=== PATIENT | female | born 1940 | race Caucasian/White ===

== ENCOUNTER 2018-12-09 10:30 | Inpatient (IN) ==
--- NOTE | 2018-12-09 11:04 | Emergency Department Note ---
Disposition Clinical Impression: Lower extremity edema, Pulmonary hypertension, Elevated troponin Dyspnea Qualifiers: Dyspnea type: dyspnea on exertion Qualified Code(s): R06.09 - Other forms of dyspnea Pulmonary embolism Qualifiers: Pulmonary embolism type: unspecified Chronicity: unspecified Acute cor pulmonale presence: without acute cor pulmonale Qualified Code(s): I26.99 - Other pulmonary embolism without acute cor pulmonale Pulmonary edema Qualifiers: Chronicity: acute Qualified Code(s): J81.0 - Acute pulmonary edema Disposition: Admitted As Inpatient Condition: Serious Time of Disposition: 15:01 SOB HPI - General Chief Complaint: ED Shortness of Breath/Dyspnea Stated Complaint: Difficulty Breathing Time Seen by Provider: 12/09/18 10:39 Source: patient, family Limitations: no limitations Nursing Notes Reviewed: Yes Vital Signs Reviewed: Yes - History of Present Illness 78-year-old female presents from home with bedside for evaluation of shortness of breath. Onset 3 days ago and gradually progressive. Associated wi th new orthopnea. Patient also has a sensation of radiation to her upper back that was improved with Tylenol. She also had 2 episodes with momentary tightness of her throat. Also associated with worsening bilateral lower extremity edema. Patient has a nonproductive cough. No fever, chest pain, diaphoresis. Patient has diagnosis of lower extremity lymphedema followed by Dr. Sheridan with CT of her pelvis and legs pending this coming week. Patient has a history of breast cancer. She finished radiation therapy to the right breast first week of July this year. Remotely had radiation therapy to left breast. She has a history of provoked DVT of the lower extremity after fraction her ankle. She has a [place] filter in place. PMH: Hypertension, breast cancer No history of PE or ACS. No history of COPD. Has never smoked. ROS: Positive: Dyspnea, throat tightness, back pain, orthopnea, worsening lower extremity edema Negative: Fever, chills, nausea, vomiting, palpitations, diaphoresis, trauma, chest pain - Related Data Home Medications Medication Instructions Recorded Confirmed Aspirin 81 mg PO DAILY 12/23/15 12/09/18 Ca/D3/Mag#11/Zinc/Air Chief Marshal/Bonifacio/Bor 1 each PO BID 12/23/15 12/09/18 [Caltrate 600+D Plus Tablet] Calcitonin,Issue,Synthetic 1 spr NS DAILY 12/23/15 12/09/18 [Calcitonin-Issue] Cranberry Conc/Ascorbic Acid 1 each PO DAILY 12/23/15 12/09/18 [Cranberry Plus Vitamin C Sftgl] Potassium 99 mg PO DAILY 12/23/15 12/09/18 Lisinopril/Hydrochlorothiazide 4 each PO DAILY 12/20/17 12/09/18 [Zestoretic 10-12.5 mg Tablet] Cholecalciferol (D-3) [Vitamin D] 2,000 unit PO DAILY 12/09/18 12/09/18 Furosemide [Lasix] 40 mg PO DAILY 12/09/18 12/09/18 Metoprolol Succinate [Toprol Xl] 25 mg PO DAILY 12/09/18 12/09/18 Nitrofurantoin Macrocrystal 100 mg PO BID 12/09/18 12/09/18 [Nitrofurantoin] Allergies Allergy/AdvReac Type Severity Reaction Status Date / Time hydrocodone AdvReac Unknown Vomiting Verified 08/24/18 10:43 indomethacin AdvReac Unknown Vomiting Verified 08/24/18 10:43 morphine AdvReac Unknown Vomiting Verified 08/24/18 10:43 codeine AdvReac Vomiting Verified 08/24/18 10:43 oxycodone AdvReac Vomiting Verified 08/24/18 10:43 All systems ED: reviewed and negative except as stated. Review of Systems: As Per HPI Past Medical History - Past Medical History Medical history: Reports: cancer, CVA, DVT, diabetes, hyperlipidemia, hypertension, osteoporosis Surgical history: Reports: appendectomy, breast surgery, cholecystectomy, knee replacement, orthopedic, other, other Psychiatric history: Reports: no psych history - Social History Smoking Status: Never smoker Smokeless Tobacco Status: No Alcohol use: Reports: none Drug use: Reports: none Physical Exam Vital Signs Reviewed General: Patient is alert, oriented, and in no acute distress while at rest. She had dyspnea in transitioning from standing beside the ED cot to laying on the ED cot. Head: atraumatic, normocephalic Eye: normal appearance, PERRL, EOMI, no scleral icterus, no conjunctival injection ENT: mucous membranes moist, normal external ear exam Neck: normal inspection, trachea midline, full ROM Chest: normal inspection, symmetric chest rise Respiratory: Thoracic kyphosis. Good respiratory effort. Good air entry. Decreased left lower lobe sounds with faint rhonchi. Diffusely no crackles or wheezing. Cardiovascular: Regular rate and rhythm. No clicks, rubs, gallops, or murmors. Normal heart sounds. Dorsalis pedis pulses 1/4 and equal. 3+ pitting edema from the distal foot to the thigh. Abdomen: Bowel sounds present normoactive. Abdomen is soft, nondistended, and nontender. No guarding or rebound. No organomegaly noted. Musculoskeletal: Spontaneously moving all extremities. Skin: warm, dry, intact. Neuro: GCS 15. No focal neurologic deficits observed. Psych: Patient's affect is appropriate for situation. - General Limitations: no limitations General appearance: alert, in no apparent distress Course Course Narrative: Recent cardiac echo showed LVEF 55%. Clinical concern for possible pelvic mass. will CTA chest, abdomen, pelvis. EKG #1 EKG dated 12/09/2018 at 10:54 interpreted as sinus rhythm with rate of 85. NE 160, QRS 80, QTC 592. Normal axis. T-wave inversion in V1 and V4 present on comparison EKG. T-wave inversion in lead 1 new from comparison EKG. Flattening of T waves in limb leads is new for comparison EKG. Comparison EKG dated 05/12/2018 showing new changes as described. EKG #2 EKG dated 12/09/2018 at 11:55 interpreted as sinus rhythm with a rate of 81. NE 164, QRS 78, QTc 569. Normal axis. Nonspecific ST-T changes. No change from EKG #1 above. 13:25 Discussed the patient with [facility], Dr. Zurita Patient has filling defects in RUL and RML pulm arteries. Suspicious for chronic PE but cannot exclude small acute PE. Moderate pleural effusion. Serum chemistry shows mild elevation in troponin. Suspect demand ischemia. Aspirin given. BNP is markedly elevated correlate with physical exam of fluid overload status. Given the PE on CTA chest will begin heparin standard dose. I reviewed the CT imaging myself as well as the CT report both for chest, abdomen, and pelvis. CT report makes mention of pulmonary hypertension. Compared to her echocardiogram of 10/23/2018 this is new pulmonary hypertension. I discussed this with the admitting hospital is, Dr. Brumfield. After consulting with the on-call digital production operator, Dr. Bell, she agrees to accept the patient to this facility. I discussed this with the patient and family bedside. They agree to admission at this facility without transfer at this time. Chest X-Ray 12/09/18 10:54 IMPRESSION: Suspect pulmonary edema. Small left pleural effusion. D/ / David Mack MD / David Mack MD Interpreting Provider: David Mack MD Abdomen/Pelvis CTA 12/09/18 11:15 IMPRESSION: 1. Eccentric filling defects within right upper, middle, and lower lobe segmental subsegmental branches. Given eccentric location, these are favored to represent chronic/old PEs, however a component of acute PE is also possible. 2. Dilated main pulmonary artery compatible with pulmonary hypertension. 3. Moderate bilateral pleural effusions with adjacent atelectasis. Interlobular septal thickening and ground-glass opacities compatible with pulmonary edema in the setting of CHF. 4. No thoracoabdominal aortic aneurysm or dissection. 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 5. Anasarca with diffuse body wall edema, mesenteric edema, and free fluid in the pelvis. 6. Colonic diverticulosis without associated acute inflammatory changes. 7. Gas in the urinary bladder, presumably related to recent instrumentation. Clinical correlation is recommended. Findings were discussed with Pop Walters DO at 1:25 pm on 12/09/2018. D/ / 12/09/2018 13:31:01 Ronan Elias MD / nicole Interpreting Provider: Ronan Elias MD Chest CTA 12/09/18 11:15 IMPRESSION: 1. Eccentric filling defects within right upper, middle, and lower lobe segmental subsegmental branches. Given eccentric location, these are favored to represent chronic/old PEs, however a component of acute PE is also possible. 2. Dilated main pulmonary artery compatible with pulmonary hypertension. 3. Moderate bilateral pleural effusions with adjacent atelectasis. Interlobular septal thickening and ground-glass opacities compatible with pulmonary edema in the setting of CHF. 4. No thoracoabdominal aortic aneurysm or dissection. 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 5. Anasarca with diffuse body wall edema, mesenteric edema, and free fluid in the pelvis. 6. Colonic diverticulosis without associated acute inflammatory changes. 7. Gas in the urinary bladder, presumably related to recent instrumentation. Clinical correlation is recommended. Findings were discussed with Pop Walters DO at 1:25 pm on 12/09/2018. D/ / 12/09/2018 13:31:01 Ronan Elias MD / nicole Interpreting Provider: Ronan Elias MD Vital Signs Temperature 97.6 F 12/09/18 10:34 Pulse Rate 97 12/09/18 10:34 Respiratory Rate 20 12/09/18 10:34 Blood Pressure 175/114 12/09/18 10:34 O2 Sat by Pulse Oximetry 98 12/09/18 10:34 Temperature 97.6 F 12/09/18 10:34 Pulse Rate 96 12/09/18 14:00 Respiratory Rate 24 12/09/18 14:00 Blood Pressure 189/113 12/09/18 14:00 O2 Sat by Pulse Oximetry 97 12/09/18 14:00 Oxygen Delivery Oxygen Delivery Room Air Shortness of Breath/Dyspnea - Lab Data Result diagrams: 12/09/18 11:02 12/09/18 11:02 Lab Results 12/09/18 12/09/18 12/09/18 Range/Units 11:02 11:02 11:02 WBC 4.0 L (4.3-11.1) K/mcL RBC 3.79 L (3.82-4.97) M/mcL Hgb 11.9 (11.5-15.4) g/dL Hct 36.1 (35.3-44.9) % MCV 95.3 (83.0-100.0) fL MCH 31.4 (28.0-33.3) pg MCHC 33.0 (31.6-35.5) g/dL RDW 12.8 (11.5-14.5) % Plt Count 167 (140-400) K/mcL MPV 9.7 (9.4-12.4) fL Immature Gran % 0.5 (0-4) % Seg Neutrophils % 69.2 % Lymphocytes % 18.0 % Monocytes % 9.8 % Eosinophils % 1.0 % Basophils % 1.5 % Neutrophils # 2.8 (1.6-8.9) K/mcL Lymphocytes # 0.7 (0.6-4.6) K/mcL Monocytes # 0.4 (0.0-1.3) K/mcL Eosinophils # 0.0 (0.0-0.6) K/mcL Basophils # 0.1 (0.0-0.2) K/mcL PT (9.4-12.1) Seconds INR Heparin Anti-Xa, Unfract (0.30-0.70) IU/mL Sodium 140 (136-145) mEq/L Potassium 4.2 (3.5-5.1) mEq/L Chloride 107 (98-107) mEq/L Carbon Dioxide 24 (23-29) mEq/L BUN 39 H (8-23) mg/dL Creatinine 1.15 (0.60-1.20) mg/dL Est GFR ( Amer) 56 L (> 60) Est GFR (Non-Af Amer) 46 L (> 60) BUN/Creatinine Ratio 34 H (6-26) Glucose 103 (70-105) mg/dL Calculated Osmolality 300 (280-300) Lactic Acid 1.0 (0.5-2.2) mmol/L Calcium 9.9 (8.6-10.3) mg/dL Troponin I 0.05 H* (< 0.04) ng/mL B-Natriuretic Peptide (Less than 100) pg/mL 12/09/18 12/09/18 Range/Units 11:02 14:34 WBC (4.3-11.1) K/mcL RBC (3.82-4.97) M/mcL Hgb (11.5-15.4) g/dL Hct (35.3-44.9) % MCV (83.0-100.0) fL MCH (28.0-33.3) pg MCHC (31.6-35.5) g/dL RDW (11.5-14.5) % Plt Count (140-400) K/mcL MPV (9.4-12.4) fL Immature Gran % (0-4) % Seg Neutrophils % % Lymphocytes % % Monocytes % % Eosinophils % % Basophils % % Neutrophils # (1.6-8.9) K/mcL Lymphocytes # (0.6-4.6) K/mcL Monocytes # (0.0-1.3) K/mcL Eosinophils # (0.0-0.6) K/mcL Basophils # (0.0-0.2) K/mcL PT 11.3 (9.4-12.1) Seconds INR 1.0 Heparin Anti-Xa, Unfract 1.39 H* (0.30-0.70) IU/mL Sodium (136-145) mEq/L Potassium (3.5-5.1) mEq/L Chloride (98-107) mEq/L Carbon Dioxide (23-29) mEq/L BUN (8-23) mg/dL Creatinine (0.60-1.20) mg/dL Est GFR ( Amer) (> 60) Est GFR (Non-Af Amer) (> 60) BUN/Creatinine Ratio (6-26) Glucose (70-105) mg/dL Calculated Osmolality (280-300) Lactic Acid (0.5-2.2) mmol/L Calcium (8.6-10.3) mg/dL Troponin I (< 0.04) ng/mL B-Natriuretic Peptide 1659 H (Less than 100) pg/mL Critical Care Time Critical Care Time: Yes Total Critical Care Time: 35 Attestation: Critical care time 35 minutes managing PE with heparin. Attestation Statement - Attestation Attestation: Patient was seen with resident physician. I reviewed the history, physical, assessment and plan, and agree with the findings. I also personally evaluated this patient and had [id number] time with this patient. 78-year-old female presents to the emergency department with chief complaint of shortness of breath and lower extremity swelling. Patient states that it has been ongoing for approximately the last 1 week or so. She said today just r eally was worse and she also had some tightness in her chest. Which ultimately prompted the visit to the emergency department. She is recently been seen by vascular surgery wanted to get a CT scan the abdomen and pelvis because of her lower extremity lymphedema. She denies nausea vomiting or diarrhea. Review of systems as above remainder negative. Physical exam vital signs were stable. ENT is unremarkable. Heart regular rhythm and rate. Lungs clear to auscultation. Abdomen is soft and nontender. Extremities significant swelling of the lower extremities bilaterally. Neurologically intact. Skin no rashes. Psych normal. ED course. I we will do CT scan of the chest abdomen pelvis. She does have a filter, but the shortest of breath is concerning especially with her cancer history as well as her history of blood clots in the past. I we will do a complete cardiac and pulmonary workup and disposition based on the findings. Hemodynamically she remained stable throughout her stay. Patient had a variety of abnormalities show up on examination. She does have a slight elevation in troponin. She had a pulmonary embolism. There is some evidence of pulmonary hypertension . Patient was started on heparin. We spoke with the hospitalist. After some discussion with pulmonology they agreed to accept the patient for admission to the hospital. Critical care time 35 minutes. Agree with resident physician assessment and plan. ED procedures.I reviewed the patient's EKG as well as the resident physician interpretation and I agree with the findings.
[2018-12-09 11:12] LABS: Basophils # 0.1 K/mcL (0.0-0.2); Basophils % 1.5 %; Hematocrit 36.1 % (35.3-44.9); Hemoglobin 11.9 g/dL (11.5-15.4); Immature Granulocytes % 0.5 % (0-4); Lymphocytes # 0.7 K/mcL (0.6-4.6); Mean Corpuscular Hemoglobin 31.4 pg (28.0-33.3); Mean Corpuscular Volume 95.3 fL (83.0-100.0); Mean Platelet Volume 9.7 fL (9.4-12.4); Monocytes # 0.4 K/mcL (0.0-1.3); Monocytes % 9.8 %; Neutrophils # 2.8 K/mcL (1.6-8.9); Platelet Count 167 K/mcL (140-400); Red Blood Count 3.79 M/mcL (3.82-4.97); Red Cell Distribution Width 12.8 % (11.5-14.5); Segmented Neutrophils % 69.2 %
[2018-12-09] MEDS ORDERED: Isovue-370 500 ML BOTTLE IVP ONE ×2 (11:15→12:39)
[2018-12-09 11:34] LABS: Calcium 9.9 mg/dL (8.6-10.3); Potassium 4.2 mEq/L (3.5-5.1)
[2018-12-09] MEDS ORDERED: 0.9 % Sodium Chloride 1,000 ML IVC ONE (11:37)
[2018-12-09 11:41] LABS: Troponin I 0.05 ng/mL (< 0.04)
[2018-12-09] MEDS ORDERED: Aspirin 325 MG TABLET PO ONE (11:48)
[2018-12-09] MEDS ORDERED: Furosemide 40 MG/4 ML VIAL IVP ONE (11:48)
[2018-12-09] MEDS ORDERED: *HR* Heparin 5,000 UNIT/ML VIAL IVP ONE (13:26)
[2018-12-09] MEDS ORDERED: *HR* Heparin 5,000 UNIT/ML VIAL IVP PRN ×2 (13:26)
[2018-12-09] MEDS: Heparin 25,000 UNIT/250 ML D5W 25,000 UNIT/250 ML IV.SOLN IVC SCH (14:09)
[2018-12-09] MEDS ORDERED: Ondansetron ODT 4 MG TAB.RAPDIS SL PRN (14:44)
[2018-12-09] MEDS ORDERED: Naloxone 0.4 MG/ML INJ IVP PRN (14:44)
[2018-12-09] MEDS ORDERED: *HR* HYDROcodone/Acet 5/325 mg TABLET PO PRN (14:44)
[2018-12-09 14:57] LABS: Prothrombin Time 11.3 Seconds (9.4-12.1)
[2018-12-09 14:59] LABS: Heparin anti-factor XA UFH 1.39 IU/mL (0.30-0.70)
--- NOTE | 2018-12-09 15:38 | Internal Med History&Physical ---
Date of Encounter: 12/09/18 Time of Encounter: 15:30 Internal Medicine - H&P: HPI Chief complaint: shortness of breath. and edema or the lower extr Admitted From: Home Plans for Post Hospital Care: Home History of present illness: Ms. Xiao is a 78 year old female PMH od breast CA, HTN, b/l knee replacement. Patient presented to the hospital due to shortness of breath and worsening edema of the lower extr. Patient reported she has been feeling short of breath for about a week now. Reported she has not been able to sleep flat because she need to sit up to catch her breath, for this reason she has been sleeping on a sitting position in recliner. She also reported shortness of breath with minimal exertion, started walking across the hallway at home would make her short of breath. stated the shortness of breath worsened significantly today and decided to come to the ED to be checked. Patient also reported gaining about 30 pounds for the past 2 1/2 months, and stated her legs are significantly bigger. stated she was on furosemide 20mg/PO daily, and her PCP increased the dose to 40mg/PO daily but it has not helped. Denies increased fluid intake, or increase salt intake. denied chest pain, but reported chest pressure associated with the shortness of breath. Denies diarrhea, loose stool. denies blood in her urine or stool. Patient was found to have anasarca, and PE. Hospitalist team called for manageme nt. Past Med Surg Social Fam HX - Past Medical History Medical history: cancer, CVA, DVT, diabetes, hyperlipidemia, hypertension, os teoporosis Additional medical history: fx R leg, L breast CA, diverticulosis, BCC, actinic keratosis Psychiatric history: no psych history - Past Surgical History Surgical History: appendectomy, breast surgery, cholecystectomy, knee replacement, orthopedic, other, other Additional surgical history: tonsillectomy, L breast lumpectomy, nolan in R leg, IVC filter, colonoscopy, ORIF L leg, BCC removed from nose - Social History Smoking Status: Never smoker Smokeless Tobacco Status: No Alcohol use: none Drug use: none Internal Medicine - H&P: Meds Aspirin 81 mg PO DAILY 12/23/15 [History] Ca/D3/Mag#11/Zinc/[employer] Support [employer]/Bonifacio/Bor [Caltrate 600+D Plus Tablet] 1 each PO BID 12/23/15 [History] Calcitonin,[place],Synthetic [Calcitonin-[place]] 1 spr NS DAILY 12/23/15 [History] Cranberry Conc/Ascorbic Acid [Cranberry Plus Vitamin C Sftgl] 1 each PO DAILY 12/23/15 [History] Potassium 99 mg PO DAILY 12/23/15 [History] Lisinopril/Hydrochlorothiazide [Zestoretic 10-12.5 mg Tablet] 4 each PO DAILY 12/20/17 [History] Cholecalciferol (D-3) [Vitamin D] 2,000 unit PO DAILY 12/09/18 [History] Furosemide [Lasix] 40 mg PO DAILY 12/09/18 [History] Metoprolol Succinate [Toprol Xl] 25 mg PO DAILY 12/09/18 [History] Nitrofurantoin Macrocrystal [Nitrofurantoin] 100 mg PO BID 12/09/18 [History] Allergy/AdvReac Type Severity Reaction Status Date / Time hydrocodone AdvReac Unknown Vomiting Verified 08/24/18 10:43 indomethacin AdvReac Unknown Vomiting Verified 08/24/18 10:43 morphine AdvReac Unknown Vomiting Verified 08/24/18 10:43 codeine AdvReac Vomiting Verified 08/24/18 10:43 oxycodone AdvReac Vomiting Verified 08/24/18 10:43 All Systems PM: A 10-system review of systems was performed and is negative for pertinent findings except as documented above in the HPI. - Constitutional Constitutional: weakness, no chills, no fever(s) - EENT Nose, mouth and throat: no dental pain - Cardiovascular Cardiovascular ROS IM: dyspnea, dyspnea on exertion, edema, orthopnea, paroxysmal nocturnal dyspnea, no chest pain, no irregular heart rhythm, no palpitations - Respiratory Respiratory: no cough, no wheezing, no excessive phlegm production - Gastrointestinal Gastrointestinal: no abdominal pain, no nausea, no vomiting - Genitourinary Genitourinary: no dysuria, no urinary frequency, no urinary hesitancy - Musculoskeletal Musculoskeletal ROS IM: no arthralgias - Neurological Neurological ROS: no focal weakness - Psychiatric Psychiatric: no anxiety, no hallucinations - Endocrine Endocrine IM: no cold intolerance, no excessive sweating - Hematologic/Lymphatic Hematologic/Lymphatic: no lymphadenopathy - Allergic/Immunologic Allergic/Immunologic: no GI upset with certain foods - Constitutional Vitals: Temp Pulse Resp BP Pulse Ox 97.6 F 96 24 189/113 97 12/09/18 10:34 12/09/18 14:00 12/09/18 14:00 12/09/18 14:00 12/09/18 14:00 Exam: Vitals: Reviewed General: Alert and oriented x4. In mild distress due to shortness of breath Cardiovascular: RRR, normal S1 & S2, no rubs, murmurs or gallops. Lungs: No wheezes, crackles left lower lobe. Abdomen: Obese, soft, non-tender, no rigidity. Extremities: Anasarca Neurological: Normal cognition and motor skills. Rest of the physical exam is non contributory Internal Med - H&P Results - Labs CBC & Chem 7: 12/09/18 11:02 12/09/18 11:02 Labs: Short CBC 12/09/18 Range/Units 11:02 WBC 4.0 L (4.3-11.1) K/mcL Hgb 11.9 (11.5-15.4) g/dL Hct 36.1 (35.3-44.9) % Plt Count 167 (140-400) K/mcL Neutrophils # 2.8 (1.6-8.9) K/mcL BMP 12/09/18 11:02 Sodium 140 Potassium 4.2 Chloride 107 Carbon Dioxide 24 BUN 39 H Creatinine 1.15 Glucose 103 Calcium 9.9 Cardiac Enzymes 12/09/18 Range/Units 11:02 Troponin I 0.05 H* (< 0.04) ng/mL - Impressions ITS Impressions Chest X-Ray 12/09/18 10:54 IMPRESSION: Suspect pulmonary edema. Small left pleural effusion. D/ / David Mack MD / David Mack MD Interpreting Provider: David Mack MD Abdomen/Pelvis CTA 12/09/18 11:15 IMPRESSION: 1. Eccentric filling defects within right upper, middle, and lower lobe segmental subsegmental branches. Given eccentric location, these are favored to represent chronic/old PEs, however a component of acute PE is also possible. 2. Dilated main pulmonary artery compatible with pulmonary hypertension. 3. Moderate bilateral pleural effusions with adjacent atelectasis. Interlobular septal thickening and ground-glass opacities compatible with pulmonary edema in the setting of CHF. 4. No thoracoabdominal aortic aneurysm or dissection. 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 5. Anasarca with diffuse body wall edema, mesenteric edema, and free fluid in the pelvis. 6. Colonic diverticulosis without associated acute inflammatory changes. 7. Gas in the urinary bladder, presumably related to recent instrumentation. Clinical correlation is recommended. Findings were discussed with Pop Walters DO at 1:25 pm on 12/09/2018. D/ / 12/09/2018 13:31:01 Ronan Elias MD / nicole Interpreting Provider: Ronan Elias MD Chest CTA 12/09/18 11:15 IMPRESSION: 1. Eccentric filling defects within right upper, middle, and lower lobe segmental subsegmental branches. Given eccentric location, these are favored to represent chronic/old PEs, however a component of acute PE is also possible. 2. Dilated main pulmonary artery compatible with pulmonary hypertension. 3. Moderate bilateral pleural effusions with adjacent atelectasis. Interlobular septal thickening and ground-glass opacities compatible with pulmonary edema in the setting of CHF. 4. No thoracoabdominal aortic aneurysm or dissection. 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 5. Anasarca with diffuse body wall edema, mesenteric edema, and free fluid in the pelvis. 6. Colonic diverticulosis without associated acute inflammatory changes. 7. Gas in the urinary bladder, presumably related to recent instrumentation. Clinical correlation is recommended. Findings were discussed with Pop Walters DO at 1:25 pm on 12/09/2018. D/ / 12/09/2018 13:31:01 Ronan Elias MD / nicole Interpreting Provider: Ronan Elias MD - Diagnostic Studies Chest x-ray Status: image reviewed by me (pulmonary edema. small b/l pleural effusion L>R) - Assessment and Plan (1) Pulmonary embolism Current Visit: Yes Status: Acute Assessment and plan: CT/CT angio chest IMPRESSION: 1. Eccentric filling defects within right upper, middle, and lower lobe segmental subsegmental branches. Given eccentric location, these are favored to represent chronic/old PEs, however a component of acute PE is also possible. Plan: Patient started on a heparin drip. patient will need to be on a anticoagulant life long patient has a venous dupplex less than one month ago which was negative for DVT/SVT. Qualifiers: Pulmonary embolism type: unspecified Chronicity: unspecified Acute cor pulmonale presence: without acute cor pulmonale Qualified Code(s): I26.99 - Other pulmonary embolism without acute cor pulmonale (2) Shortness of breath Current Visit: Yes Status: Acute Assessment and plan: patient with SOB, orthopnea, weight gain and worsening edema of the lower extr b/l. patient symptoms are likely secondary to CHF and acute/chronic pulmonary embolism. Plan: started on furosemide 40mg/IV BID strict intake and output daily weight fluids restriction to 1.5 litters a day 2gram sodium diet TTE ordered to evaluate for right heart strain and estimate EF. will resume home dose of metoprolol. (3) Anasarca Current Visit: Yes Status: Chronic Assessment and plan: plan of care as per problem #1. (4) DVT prophylaxis Current Visit: Yes Status: Chronic Assessment and plan: patient on a heparin drip due to acute PE (5) Pulmonary edema Current Visit: Yes Status: Acute Assessment and plan: plan of care as per problem #1. Qualifiers: Chronicity: acute Qualified Code(s): J81.0 - Acute pulmonary edema (6) Pulmonary hypertension Current Visit: Yes Status: Acute Assessment and plan: possible classification within the Group 4. Pulmonology has been consulted. 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 (8) Hypertension Current Visit: Yes Status: Chronic Assessment and plan: Hypertensive urgency on presentation. BP 197/119. patient started on furosemide 40mg/IV BID and metoprolol. hydralazine 5mg/IV Q5HR for SBP >190 or DBP >110 Qualifiers: Hypertension type: unspecified Qualified Code(s): I10 - Essential (primary) hypertension (9) Superior mesenteric artery stenosis Current Visit: Yes Status: Chronic - Time Spent With Patient Total time spent is greater than 50% in coordination of care (as documented) at patient's floor/unit and/or counseling patient: Greater than 35 minutes (50)
[2018-12-09 16:01] LABS: ABG Base Excess 0 mEq/L (-2 to 3); ABG HCO3 24 mEq/L (21-27); ABG Oxygen Saturation 97 % (95-98); ABG PCO2 34 mmHg (35-45); ABG PH 7.45 pH Units (7.32-7.45); ABG PO2 85 mmHg (85-104); ABG TCO2 25 mEq/L (20-26)
--- NOTE | 2018-12-09 16:33 | Electrocardiograph Report ---
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
--- NOTE | 2018-12-09 16:34 | Electrocardiograph Report ---
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
[2018-12-09 18:17] LABS: Bilirubin,Urine Negative (Negative); Blood,Urine Moderate (Negative); Clarity,Urine Clear (Clear); Glucose,Urine (UA) Normal (Normal); Ketones,Urine Negative (Negative); Leukocyte Esterase,Urine Negative (Negative); Nitrite,Urine Negative (Negative); PH,Urine 6.5 pH Units (5.0-8.0); Protein,Urine 100 mg/dL (Neg-Trace); Urobilinogen,Urine Normal (Normal)
[2018-12-09 18:28] LABS: Color,Urine Yellow (Yellow)
[2018-12-09 18:29] LABS: Bacteria,Urine Few per hpf (None-Few); Squamous Epithelial Cell,Urine Few per lpf (None-Few); WBC,Urine 0-3 per hpf (0-3)
[2018-12-09] MEDS: Acetaminophen 325 MG TABLET PO PRN (20:11)
[2018-12-09] MEDS: Furosemide 40 MG/4 ML VIAL IVP SCH (20:12)
[2018-12-10 02:48] LABS: Basophils # 0.1 K/mcL (0.0-0.2); Basophils % 1.8 %; Eosinophils # 0.1 K/mcL (0.0-0.6); Eosinophils % 2.1 %; Hematocrit 30.3 % (35.3-44.9); Immature Granulocytes % 0.3 % (0-4); Lymphocytes # 0.8 K/mcL (0.6-4.6); Lymphocytes % 21.1 %; Mean Corpuscular Hemoglobin 31.5 pg (28.0-33.3); Mean Corpuscular Volume 95.6 fL (83.0-100.0); Mean Platelet Volume 9.8 fL (9.4-12.4); Monocytes # 0.5 K/mcL (0.0-1.3); Monocytes % 12.6 %; Neutrophils # 2.4 K/mcL (1.6-8.9); Platelet Count 163 K/mcL (140-400); Red Blood Count 3.17 M/mcL (3.82-4.97); Red Cell Distribution Width 12.6 % (11.5-14.5); Segmented Neutrophils % 62.1 %; White Blood Count 3.8 K/mcL (4.3-11.1)
[2018-12-10 03:08] LABS: Albumin 2.9 g/dL (3.5-5.7); Albumin/Globulin Ratio 1.6 (1.1-2.2); Bilirubin,Total 0.5 mg/dL (0.3-1.0); Chol/HDL Ratio 3.1 (0-4.9); Globulin 1.8 g/dL (2.4-3.5); Magnesium 1.9 mg/dL (1.6-2.6); Phosphorous 4.1 mg/dL (2.7-4.5); Potassium 3.9 mEq/L (3.5-5.1); Total Protein 4.7 g/dL (6.4-8.9)
[2018-12-10] MEDS: Aspirin Enteric Coated 81 MG Tablet PO SCH (08:19)
[2018-12-10] MEDS: Metoprolol XL (24 HR) Succ 25 MG TAB.ER.24H PO SCH (08:19)
[2018-12-10] MEDS: Furosemide 40 MG/4 ML VIAL IVP SCH ×2 (08:19→19:55)
--- NOTE | 2018-12-10 08:28 | Pulmonology Consult Note ---
<PatriciaKamryn moore M - Last Filed: 12/10/18 09:10> Date of Encounter: 12/10/18 Medications and Allergies Aspirin 81 mg PO DAILY 12/23/15 [History] Ca/D3/Mag#11/Zinc/In Flight Refueling Operator/[place]/Bor [Caltrate 600+D Plus Tablet] 1 each PO BID 12/23/15 [History] Calcitonin,[place],Synthetic [Calcitonin-[place]] 1 spr NS DAILY 12/23/15 [History] Cranberry Conc/Ascorbic Acid [Cranberry Plus Vitamin C Sftgl] 1 each PO DAILY 12/23/15 [History] Potassium 99 mg PO DAILY 12/23/15 [History] Lisinopril/Hydrochlorothiazide [Zestoretic 10-12.5 mg Tablet] 4 each PO DAILY 12/20/17 [History] Cholecalciferol (D-3) [Vitamin D] 2,000 unit PO DAILY 12/09/18 [History] Furosemide [Lasix] 40 mg PO DAILY 12/09/18 [History] Metoprolol Succinate [Toprol Xl] 25 mg PO DAILY 12/09/18 [History] Nitrofurantoin Macrocrystal [Nitrofurantoin] 100 mg PO BID 12/09/18 [History] Allergy/AdvReac Type Severity Reaction Status Date / Time hydrocodone AdvReac Unknown Vomiting Verified 08/24/18 10:43 indomethacin AdvReac Unknown Vomiting Verified 08/24/18 10:43 morphine AdvReac Unknown Vomiting Verified 08/24/18 10:43 codeine AdvReac Vomiting Verified 08/24/18 10:43 oxycodone AdvReac Vomiting Verified 08/24/18 10:43 All Systems: The remainder of the systems were reviewed and are negative Physical Examination Vital Signs: Vital Signs, Last 4 Hours Temp Pulse Resp BP Pulse Ox 12/10/18 08:24 98.4 F 12/10/18 08:00 85 25 161/93 98 12/10/18 07:00 85 19 154/91 97 12/10/18 06:00 86 21 157/92 95 Results - Laboratory Findings CBC and BMP: 12/10/18 02:38 12/10/18 02:38 ABG ABG pH 7.45 pH Units (7.32-7.45) 12/09/18 15:57 ABG pCO2 34 mmHg (35-45) L 12/09/18 15:57 ABG pO2 85 mmHg (85-104) 12/09/18 15:57 ABG O2 Saturation 97 % (95-98) 12/09/18 15:57 PT/INR, D-dimer PT 11.3 Seconds (9.4-12.1) 12/09/18 14:34 Abnormal lab findings: Abnormal lab results WBC 3.8 K/mcL (4.3-11.1) L 12/10/18 02:38 RBC 3.17 M/mcL (3.82-4.97) L 12/10/18 02:38 Hgb 10.0 g/dL (11.5-15.4) L D 12/10/18 02:38 Hct 30.3 % (35.3-44.9) L 12/10/18 02:38 Heparin Anti-Xa, Unfract 0.24 IU/mL (0.30-0.70) L 12/10/18 02:38 ABG pCO2 34 mmHg (35-45) L 12/09/18 15:57 BUN 39 mg/dL (8-23) H 12/10/18 02:38 Est GFR ( Amer) 55 (> 60) L 12/10/18 02:38 Est GFR (Non-Af Amer) 45 (> 60) L 12/10/18 02:38 BUN/Creatinine Ratio 34 (6-26) H 12/10/18 02:38 Troponin I 0.08 ng/mL (< 0.04) H* 12/10/18 02:38 B-Natriuretic Peptide 1659 pg/mL (Less than 100) H 12/09/18 11:02 Serum Total Protein 4.7 g/dL (6.4-8.9) L 12/10/18 02:38 Albumin 2.9 g/dL (3.5-5.7) L 12/10/18 02:38 Globulin 1.8 g/dL (2.4-3.5) L 12/10/18 02:38 Urine Protein 100 mg/dL (Neg-Trace) H 12/09/18 18:02 Urine Blood Moderate (Negative) H 12/09/18 18:02 Urine Microscopic RBC 5-15 per hpf (0-3) H 12/09/18 18:02 - Clinical Findings Intake & Output: Intake & Output 12/09/18 12/10/18 12/10/18 23:59 07:59 15:59 Intake Total 278.8 / 1285.8 43.1 / 43.1 Output Total 1645 / 2345 350 / 500 150 / 500 Balance -1366.2 / -1059.2 -306.9 / -456.9 -150 / -456.9 Weight 76.3 kg Consult Discharge Plan - Plan Referrals: Nae Barone, INDUSTRIAL SALES ENGINEER [Primary Care Provider] - - Attending Attestation I examined this patient and my medical decision-making was reviewed with the Resident Physician. I agree with the documented findings, disposition and treatment plan as described except to the extent set forth below. Patient seen and examined. Labs, radiology, chart personally reviewed. Agree with resident's history and physical, assessment, plan with following comments: HAM FACER: Patient follows commands, Pulmonary: Acceptable oxygenation and ventilation. Reviewed CT chest and I suspect this is mostly chronic thromboembolic disease and most likely she has pulmonary hypertension from that and clearly pulmonary artery enlarged and the CT. Patient has multiple risk factors for thromboembolic disease including malignancies and also she has bilateral leg swelling. Patient has IVC filter placed in the past. Echocardiogram was done and final report is pending at this time. There is no indication for thrombolytics at this time. I have explained to the patient ideally if her malignancies get under control then she might need surgery to remove clots that is done only in some highly specialized centers in the [facility]. At this time she would need to be on anticoagulation and they suspect this need to be done for the rest overnight. Cardiovascular: stable , actually she is hypertensive and just received a phone call from the box spring maker suspecting pericardial tamponade and immediately talk to Dr. Ling regarding the findings and he would evaluate the patient. Will keep patient in ICU for now. Patient is on beta marcia and if she remained hypertensive will resume her medications. GI: Nutrition per dietary and GI prophylaxis per routine. Keep patient nothing by mouth for any possible surgeries. Heme: DVT prophylaxis per routine. This will be transition to oral when she is ready. Patient is already seen by oncologist and also surgeon for her breast cancer ID: Continue antibiotics and plan to de-escalation Renal; urine out put and renal function reviewed Endorcine: blood glucose is monitored Lines: all lines checked and no evidence of infections Skin: skin care to prevent pressure ulcers per nursing routine care Dispo: To keep her in ICU for now Code: Full. Prognosis. Critical if pericardial tamponade get worse. I spent 40 min of Critical Care time with this patient. It involved decision m aking of high complexity to assess, manipulate, and support vital organ system failure and/or to prevent further life threatening deterioration of the patient's condition. The time involved in the performance of separately reportable procedures was not counted toward critical care time. <Rufus Soriano Pily - Last Filed: 12/10/18 15:49> Date of Encounter: 12/10/18 Time of Encounter: 08:02 Assessment and Plan (1) Pericardial effusion Current Visit: Yes Status: Acute (2) Pulmonary embolism Current Visit: Yes Status: Acute Qualifiers: Pulmonary embolism type: unspecified Chronicity: unspecified Acute cor pulmonale presence: without acute cor pulmonale Qualified Code(s): I26.99 - Other pulmonary embolism without acute cor pulmonale (3) Pleural effusion Current Visit: Yes Status: Acute (4) Urinary tract infection Current Visit: Yes Status: Acute Qualifiers: Qualified Code(s): N39.0 - Urinary tract infection, site not specified; R31.9 - Hematuria, unspecified (5) Breast cancer in female Current Visit: Yes Status: Acute Qualifiers: Qualified Code(s): C50.919 - Malignant neoplasm of unspecified site of unspecified female breast History of Present Illness Consult date: 12/10/18 History of present illness: EMR review Mrs. Xiao is a 78-year-old female who presented to the ED from home on 12/09/18 with shortness of breath. PMH: Bilateral Breast cancer, hypertension, CVA, diabetes, hyperlipidemia, osteoporosis Initial pertinent positive VS: Pulse 97, RR 24, BP 189/113 Initial pertinent positive labs: PCO2 34. BUN 39 from 25 on 06/05/89. Troponins 0.05> 0.04> 0.08x2. BNP 1659. Proteinuria, hematuria. CXR was suspect for pulmonary edema. Small left pleural effusion seen EKG 10:54: Read by box spring maker as Prolonged QT interval. Nonspecific T abnormalities in diffuse leads EKG 11:51 read as T wave abnormalities more specific to the anterolateral leads CTA chest interpretation included suggestive for old pulmonary embolisms. Could not exclude small acute PE. Also Dilated main pulmonary artery compatible with pulmonary hypertension. Moderate bilateral effusions with adjacent atelectasis. Pulmonary edema. 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 Anasarca. CTA abdomen/pelvis read as colonic diverticulosis. As in the urinary bladder. Admitted for: #Pulmonary embolism. Treated with heparin drip. #Dyspnea potentially secondary to CHF. Treated with furosemide. Was found to have evidence of cardiac tamponade and was kept in the ICU Interview with the patient: CC: "Could not breathe" History of present illness Dyspnea worsened within the past 1-2 weeks. She was having anxiety attacks. Later stated that the dyspnea lasted all summer and recently worsened. Feeling of water on her lungs. She agrees that she was walking slower than usual. History of lower extremity DVT with placement of a filter that is still in place. PMH: CVA, breast cancer, osteoporosis, DVT. Patient denies diabetes, hyperlipidemia. PSH: Bilateral lumpectomy, cholecystectomy, appendectomy, bilateral knee replacement Medications: Calcium citrate D. Metoprolol 25. Lisinopril 25. Aspirin 81. Cranberry pills. Vitamin D3. Potassium tablets. Cetirizine. Tylenol. Family history: MotherCOPD, liver or colon cancer. Fathercardiac issues, possible cancer. Brotherpossible hypertension. Past Med Surg Social Fam HX - Past Medical History Medical history: cancer, CVA, DVT, diabetes, hyperlipidemia, hypertension, osteoporosis Additional medical history: fx R leg, L breast CA, diverticulosis, BCC, actinic keratosis Psychiatric history: no psych history - Past Surgical History Surgical History: appendectomy, breast surgery, cholecystectomy, knee replacement, orthopedic, other, other Additional surgical history: tonsillectomy, L breast lumpectomy, nolan in R leg, IVC filter, colonoscopy, ORIF L leg, BCC removed from nose - Social History Smoking Status: Never smoker Smokeless Tobacco Status: No Alcohol use: none Drug use: none All Systems: The remainder of the systems were reviewed and are negative Review of Systems: Admits dark-colored urine with burning and dysuria treated for 1.5 days with trimethoprim sulfamethoxazole that was discontinued upon arrival to this hospital. Admits history of either basal or squamous cell skin cancer, arthritis, cane use at home. Denies blurred or double vision, glaucoma, macular degeneration, colored sputum production, hemoptysis, myocardial infarction, trouble swallowing, nausea, vomiting, constipation, melena, hematochezia, chronic constipation or diarrhea. Physical Examination Vital Signs: Vital Signs, Last 4 Hours Pulse Resp BP Pulse Ox 12/10/18 07:00 85 19 154/91 97 12/10/18 06:00 86 21 157/92 95 12/10/18 05:00 89 23 159/97 97 Gen.: Elderly female. No acute distress Skin: Good turgor. Seborrheic keratosis over epigastric area Eyes: Moist. Anicteric Neck: No hepatojugular reflux. No carotid bruits Cardiac: Regular rate and rhythm. No murmur gallop or rub. S4 heart sound Respiratory: Crackles at lung bases. dry at least on the left. Some very minimal crackling anterior upper mckinney. GI: Nontender. Nonobese. Bowel sounds heard Extremities: Bilateral lower extremity edema pitting at least on the left. Neuro: Eyes track objects. No obvious tremor Psych: Appropriate mood and behavior. Answers questions coherently A/P #Pericardial effusion Consider secondary to malignancy Progressive dyspnea Small to moderate size No pericardial effusion seen on CTA 12/09/18 Echo 12/09/18: Moderate pericardial effusion. RA systolic collapse and subtle RV diastolic collapse. Representation of early tamponade. LVEF 40-45%. Moderate global LV systolic dysfunction. Mild aortic and tricuspid regurg. No evidence of pulmonary hypertension Echo 12/10/18: Same read as previous. -Furosemide 40 IV twice a day -Pericardial window to be performed 12/11/18 -Nothing by mouth at midnight #Pleural effusion Consider malignant CTA chest interpretation included suggestive for old pulmonary embolisms. Could not exclude small acute PE. Also Dilated main pulmonary artery compatible with pulmonary hypertension. Moderate bilateral effusions with adjacent atelectasis. Pulmonary edema. 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 Anasarca. -Plan to place bilateral Pleurx catheters and performed bilateral pleural effusion analysis per CT surgery #Pulmonary embolism Risk factors include breast cancer, bilateral lower extremity edema, prior DVT, IVC filter CTA as above Venous duplex ultrasound bilateral lower extremities unremarkable -Heparin drip #Breast carcinoma Status post bilateral lumpectomy and radiation on both breasts. Left breast t reated around 10 years ago. Right breast received 16 treatments of radiation last dose the first week of July. 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 Yanez #UTI Patient had a UA done on 12/06 secondary to urinary symptoms reported to nurse practitioner Lizabeth She was treated with nitrofurantoin and only took 3 pills of this Urine culture grew Klebsiella with intermediate sensitivity to nitrofurantoin -Cefazolin 1g bid day 1 of 5 Results - Laboratory Findings CBC and BMP: 12/10/18 02:38 12/10/18 02:38 ABG ABG pH 7.45 pH Units (7.32-7.45) 12/09/18 15:57 ABG pCO2 34 mmHg (35-45) L 12/09/18 15:57 ABG pO2 85 mmHg (85-104) 12/09/18 15:57 ABG O2 Saturation 97 % (95-98) 12/09/18 15:57 PT/INR, D-dimer PT 11.3 Seconds (9.4-12.1) 12/09/18 14:34 Abnormal lab findings: Abnormal lab results WBC 3.8 K/mcL (4.3-11.1) L 12/10/18 02:38 RBC 3.17 M/mcL (3.82-4.97) L 12/10/18 02:38 Hgb 10.0 g/dL (11.5-15.4) L D 12/10/18 02:38 Hct 30.3 % (35.3-44.9) L 12/10/18 02:38 Heparin Anti-Xa, Unfract 0.24 IU/mL (0.30-0.70) L 12/10/18 02:38 ABG pCO2 34 mmHg (35-45) L 12/09/18 15:57 BUN 39 mg/dL (8-23) H 12/10/18 02:38 Est GFR ( Amer) 55 (> 60) L 12/10/18 02:38 Est GFR (Non-Af Amer) 45 (> 60) L 12/10/18 02:38 BUN/Creatinine Ratio 34 (6-26) H 12/10/18 02:38 Troponin I 0.08 ng/mL (< 0.04) H* 12/10/18 02:38 B-Natriuretic Peptide 1659 pg/mL (Less than 100) H 12/09/18 11:02 Serum Total Protein 4.7 g/dL (6.4-8.9) L 12/10/18 02:38 Albumin 2.9 g/dL (3.5-5.7) L 12/10/18 02:38 Globulin 1.8 g/dL (2.4-3.5) L 12/10/18 02:38 Urine Protein 100 mg/dL (Neg-Trace) H 12/09/18 18:02 Urine Blood Moderate (Negative) H 12/09/18 18:02 Urine Microscopic RBC 5-15 per hpf (0-3) H 12/09/18 18:02 - Clinical Findings Intake & Output: Intake & Output 12/09/18 12/10/18 12/10/18 23:59 07:59 15:59 Intake Total 278.8 / 1285.8 43.1 / 43.1 Output Total 1645 / 2345 350 / 350 Balance -1366.2 / -1059.2 -306.9 / -306.9 Weight 76.3 kg
--- NOTE | 2018-12-10 09:48 | Cardiothoracic Consult Note ---
Date of Encounter: 12/10/18 Time of Encounter: 09:43 Assessment and Plan (1) Pericardial effusion Current Visit: Yes Status: Acute The assessment and plan as outlined above was discussed with the patient and/or family members who expressed understanding and agreement. All questions were answered. I have reviewed the echocardiogram. Effusion is small to moderate size I would offer a pericardial window at this time for analysis of the fluid and pe ricardium. Preoperative orders will be written today. (2) Pleural effusion Current Visit: Yes Status: Acute The assessment and plan as outlined above was discussed with the patient and/or family members who expressed understanding and agreement. All questions were answered. CT scan demonstrates moderate size bilateral pleural effusions. Given the history of breast cancer and the epidemiology 50% of lady's with breast cancer developing pleural disease, I would place bilateral Pleurx catheters and bilateral pleural effusion analysis. Preoperative orders will be written. (3) Hypertension Current Visit: No Status: Chronic The assessment and plan as outlined above was discussed with the patient and/or family members who expressed understanding and agreement. All questions were answered. Continue current treatment. Qualifiers: Hypertension type: essential hypertension Qualified Code(s): I10 - Essential (primary) hypertension - History of Present Illness Consult date: 12/10/18 Requesting physician: Kamryn Bell Consult reason: pericardial effusion Chief complaint: sob History of present illness: Ms. Xiao is a 78 year old female who presented to the [facility] system approximately a month's history of shortness of breath over the course of the summer increasing lower extremity edema and exacerbation of her shortness of breath and dyspnea on exertion significantly over the last week about a 30 pounds weight gain despite Lasix for her lower extremity edema. Echocardiogram today demonstrates a new small to moderate size pericardial effusion. CTA of the chest demonstrates a small pericardial effusion and moderate size bilateral, left slightly greater than right pleural effusions. Past Med Surg Social Fam HX - Past Medical History Medical history: cancer, CVA, DVT, diabetes, hyperlipidemia, hypertension, osteoporosis Additional medical history: bilateral femur fx, left wrist fx, L breast CA, diverticulosis, BCC, actinic keratosis Psychiatric history: no psych history - Past Surgical History Surgical History: appendectomy, breast surgery, cholecystectomy, knee replacement, orthopedic, other, other Additional surgical history: tonsillectomy, L breast lumpectomy, nolan in R leg, IVC filter, colonoscopy, ORIF L leg, BCC removed from nose - Social History Smoking Status: Never smoker Smokeless Tobacco Status: No Alcohol use: none Drug use: none - Additional Family History Additional family history: cad, htn, liver versus metastatic colon cancer Medications and Allergies Aspirin 81 mg PO DAILY 12/23/15 [History] Ca/D3/Mag#11/Zinc/File Clerk/Bonifacio/Bor [Caltrate 600+D Plus Tablet] 1 each PO BID 12/23/15 [History] Calcitonin,[place],Synthetic [Calcitonin-[place]] 1 spr NS DAILY 12/23/15 [History] Cranberry Conc/Ascorbic Acid [Cranberry Plus Vitamin C Sftgl] 1 each PO DAILY 12/23/15 [History] Potassium 99 mg PO DAILY 12/23/15 [History] Lisinopril/Hydrochlorothiazide [Zestoretic 10-12.5 mg Tablet] 4 each PO DAILY 12/20/17 [History] Cholecalciferol (D-3) [Vitamin D] 2,000 unit PO DAILY 12/09/18 [History] Furosemide [Lasix] 40 mg PO DAILY 12/09/18 [History] Metoprolol Succinate [Toprol Xl] 25 mg PO DAILY 12/09/18 [History] Nitrofurantoin Macrocrystal [Nitrofurantoin] 100 mg PO BID 12/09/18 [History] Allergy/AdvReac Type Severity Reaction Status Date / Time hydrocodone AdvReac Unknown Vomiting Verified 08/24/18 10:43 indomethacin AdvReac Unknown Vomiting Verified 08/24/18 10:43 morphine AdvReac Unknown Vomiting Verified 08/24/18 10:43 codeine AdvReac Vomiting Verified 08/24/18 10:43 oxycodone AdvReac Vomiting Verified 08/24/18 10:43 All Systems Review: The remainder of the systems were reviewed and are negative - Constitutional Constitutional: fatigue, weight gain - Cardiovascular Cardiovascular: dyspnea at rest, dyspnea on exertion, leg edema, orthopnea, other (chest pressure ) - Genitourinary Genitourinary: dysuria - Musculoskeletal Musculoskeletal: back pain, muscle weakness - Hematological/Lymphatic Hematologic/Lymphatic: blood thinners Physical Examination Vital Signs, Last 4 Hours Temp Pulse Resp BP Pulse Ox 12/10/18 09:00 88 28 157/82 97 12/10/18 08:24 98.4 F 12/10/18 08:00 85 25 161/93 98 12/10/18 07:00 85 19 154/91 97 12/10/18 06:00 86 21 157/92 95 General: Conversant, No Apparent Distress, Well developed, Well nourished HEENT: Atraumatic, Normocephaly, Trachea midline Neck: No JVD, Other (no hepatojugular reflux ) Cardiac: Reg Rate and Rhythm, Normal S1 and S2, Other Lungs: Decreased breath sounds Neuro: Alert and responsive, No focal deficits noted, Cranial nerves intact, Motor nerves intact Vascular: Normal capillary refill Abdomen: Soft, Non-tender Musculoskeletal: No Chest Wall Tenderness Extremities: No Clubbing, No Cyanosis, Other (1+ edema ) Results 12/10/18 02:38 12/10/18 02:38 Lab Results, Last 24 hours 12/09/18 12/09/18 12/09/18 11:02 11:02 11:02 WBC 4.0 L Hgb 11.9 Hct 36.1 Plt Count 167 INR Sodium 140 Potassium 4.2 Chloride 107 Carbon Dioxide 24 BUN 39 H Creatinine 1.15 Glucose 103 Calcium 9.9 Magnesium Total Bilirubin AST ALT Alkaline Phosphatase Troponin I 0.05 H* B-Natriuretic Peptide 1659 H 12/09/18 12/09/18 12/09/18 14:34 16:51 20:20 WBC Hgb Hct Plt Count INR 1.0 Sodium Potassium Chloride Carbon Dioxide BUN Creatinine Glucose Calcium Magnesium Total Bilirubin AST ALT Alkaline Phosphatase Troponin I 0.04 H* 0.08 H* B-Natriuretic Peptide 12/10/18 12/10/18 12/10/18 02:38 02:38 02:38 WBC 3.8 L Hgb 10.0 L D Hct 30.3 L Plt Count 163 INR Sodium 137 Potassium 3.9 Chloride 105 Carbon Dioxide 24 BUN 39 H Creatinine 1.16 Glucose 93 Calcium 9.0 Magnesium 1.9 Total Bilirubin 0.5 AST 22 ALT 22 Alkaline Phosphatase 50 Troponin I 0.08 H* B-Natriuretic Peptide - Imaging Chest Xray: image reviewed Echo: image reviewed Consult Discharge Plan - Plan Referrals: Nae Barone, CLINICAL APPEALS SPECIALIST [Primary Care Provider] -
[2018-12-10] MEDS ORDERED: CeFAZolin Syr 2,000MG/20 ML 2,000 MG/20 ML SYRINGE IVPB ONE (09:56)
[2018-12-10] MEDS: ceFAZolin 1,000 MG in 0.9 % Sodium Chloride 100 ML IVPB SCH (18:00)
[2018-12-10] MEDS: Heparin 25,000 UNIT/250 ML D5W 25,000 UNIT/250 ML IV.SOLN IVC SCH (19:56)
[2018-12-10] MEDS: Acetaminophen 325 MG TABLET PO PRN (19:59)
[2018-12-11] MEDS: ceFAZolin 1,000 MG in 0.9 % Sodium Chloride 100 ML IVPB SCH (05:57)
[2018-12-11] MEDS: Furosemide 40 MG/4 ML VIAL IVP SCH ×2 (08:45→21:54)
[2018-12-11] MEDS: Metoprolol XL (24 HR) Succ 25 MG TAB.ER.24H PO SCH (08:45)
[2018-12-11] MEDS: Aspirin Enteric Coated 81 MG Tablet PO SCH ×2 (08:46→10:33)
--- NOTE | 2018-12-11 10:31 | Anesthesia Evaluation PreOp ---
Date of Encounter: 12/11/18 Time of Encounter: 12:57 - Past History Planned Operation: pericardial window and b/l pleurx tubes Cardiac History: HTN, Hyperlipidemia, Other (PND) Pulmonary History: Denies Any Significant HX V BELT COVERER History: CVA Other Medical History: Diabetes Type II, Other (breast cancer) Anesthesia History: No Prior Anesthetic Complications, Past Anesthesia (lumpectomy, appy, im nail femur, b/l TKA, ivc filter) Alcohol Use: none Drug use: none Medications and Allergies Aspirin 81 mg PO DAILY 12/23/15 [History] Ca/D3/Mag#11/Zinc/Sewing Teacher/Bonifacio/Bor [Caltrate 600+D Plus Tablet] 1 each PO BID 12/23/15 [History] Calcitonin,[place],Synthetic [Calcitonin-[place]] 1 spr NS DAILY 12/23/15 [History] Cranberry Conc/Ascorbic Acid [Cranberry Plus Vitamin C Sftgl] 1 each PO DAILY 12/23/15 [History] Potassium 99 mg PO DAILY 12/23/15 [History] Lisinopril/Hydrochlorothiazide [Zestoretic 10-12.5 mg Tablet] 4 each PO DAILY 12/20/17 [History] Cholecalciferol (D-3) [Vitamin D] 2,000 unit PO DAILY 12/09/18 [History] Furosemide [Lasix] 40 mg PO DAILY 12/09/18 [History] Metoprolol Succinate [Toprol Xl] 25 mg PO DAILY 12/09/18 [History] Nitrofurantoin Macrocrystal [Nitrofurantoin] 100 mg PO BID 12/09/18 [History] Allergy/AdvReac Type Severity Reaction Status Date / Time hydrocodone AdvReac Unknown Vomiting Verified 08/24/18 10:43 indomethacin AdvReac Unknown Vomiting Verified 08/24/18 10:43 morphine AdvReac Unknown Vomiting Verified 08/24/18 10:43 codeine AdvReac Vomiting Verified 08/24/18 10:43 oxycodone AdvReac Vomiting Verified 08/24/18 10:43 - Meds/Allergy Pre-op Review Medications Reviewed: Yes Allergies Reviewed: Yes Beta Blockers on Current Med List: Yes If Beta Blockers taken, Date/Time (Last Dose taken): today 0845 Anesthesia Results - Labs 12/10/18 02:38 12/10/18 02:38 - Imaging Additional studies: echo: Impressions: There is a moderate pericardial effusion present. There is RA systolic collapse and subtle RV diastolic collapse.These represent echocardiographic evidence of early tamponade. Clinical correlation is recommended. Road Supervisor street contractor, was notified via paging system. LVEF 40-45%. Moderate global left ventricular systolic dysfunction. Normal right ventricular structure and function. Mild aortic regurgitation. Mild tricuspid regurgitation. No evidence of pulmonary hypertension. Anesthesia Exam Selected Entries 12/11/18 11:58 12/11/18 12:00 Temperature 97.7 F Pulse Rate 90 Respiratory Rate 20 Blood Pressure 174/99 O2 Sat by Pulse Oximetry 100 Oxygen Flow Rate (LPM) 3 Oxygen Delivery Method Nasal Cannula Weight: 78kg NPO (# of Hours): >8 hrs - HEENT Pupil (Motor): EOMI Mallampati: II Teeth: Missing, Prosthesis Denture Type: Upper: Partial Oral Opening: Greater than 3 - V BELT COVERER LOC: Oriented V BELT COVERER Motor: Normal RUE, Normal LUE, Normal RLE, Normal LLE, Normal Face V BELT COVERER Sensory: Normal: RUE, LUE, RLE, LLE, Face - Cardiac Rhythm: Regular Murmur: None - Pulmonary Breath Sounds: bilateral Clear Respiratory Effort: Symmetrical Anesthesia Assess/Plan ASA Score: 3 Level of consciousness: Cooperative, Oriented Anesthetic Plan: General Monitoring Plan: Standard Monitors Recovery Plan: ICU (agrees to GA)
--- NOTE | 2018-12-11 13:07 | Pulmonology Progress Note ---
<IsadoraJim W - Last Filed: 12/11/18 13:58> Date of Encounter: 12/11/18 Objective PUL Vital signs: Last Vital Signs Temp 97.7 F 12/11/18 11:58 Pulse 88 12/11/18 13:00 Resp 20 12/11/18 13:00 BP 169/87 12/11/18 13:00 Pulse Ox 99 12/11/18 13:00 Results - Laboratory Findings CBC and BMP: 12/10/18 02:38 12/10/18 02:38 ABG ABG pH 7.45 pH Units (7.32-7.45) 12/09/18 15:57 ABG pCO2 34 mmHg (35-45) L 12/09/18 15:57 ABG pO2 85 mmHg (85-104) 12/09/18 15:57 ABG O2 Saturation 97 % (95-98) 12/09/18 15:57 PT/INR, D-dimer PT 11.3 Seconds (9.4-12.1) 12/09/18 14:34 Abnormal lab findings: Abnormal lab results WBC 3.8 K/mcL (4.3-11.1) L 12/10/18 02:38 RBC 3.17 M/mcL (3.82-4.97) L 12/10/18 02:38 Hgb 10.0 g/dL (11.5-15.4) L D 12/10/18 02:38 Hct 30.3 % (35.3-44.9) L 12/10/18 02:38 Heparin Anti-Xa, Unfract 0.24 IU/mL (0.30-0.70) L 12/10/18 02:38 ABG pCO2 34 mmHg (35-45) L 12/09/18 15:57 BUN 39 mg/dL (8-23) H 12/10/18 02:38 Est GFR ( Amer) 55 (> 60) L 12/10/18 02:38 Est GFR (Non-Af Amer) 45 (> 60) L 12/10/18 02:38 BUN/Creatinine Ratio 34 (6-26) H 12/10/18 02:38 Troponin I 0.08 ng/mL (< 0.04) H* 12/10/18 02:38 B-Natriuretic Peptide 1659 pg/mL (Less than 100) H 12/09/18 11:02 Serum Total Protein 4.7 g/dL (6.4-8.9) L 12/10/18 02:38 Albumin 2.9 g/dL (3.5-5.7) L 12/10/18 02:38 Globulin 1.8 g/dL (2.4-3.5) L 12/10/18 02:38 Urine Protein 100 mg/dL (Neg-Trace) H 12/09/18 18:02 Urine Blood Moderate (Negative) H 12/09/18 18:02 Urine Microscopic RBC 5-15 per hpf (0-3) H 12/09/18 18:02 - Clinical Findings Intake & Output: Intake & Output 12/10/18 12/11/18 12/11/18 23:59 07:59 15:59 Intake Total 1001.1 / 1244.2 100 / 100 Output Total 1350 / 2850 450 / 1350 900 / 1350 Balance -348.9 / -1605.8 -350 / -1250 -900 / -1250 Weight 77.7 kg Consult Discharge Plan - Plan Referrals: Nae Barone, P[employer]LING DRUM OPERATOR [Primary Care Provider] - - Attending Attestation I examined this patient and my medical decision-making was reviewed with the Resident Physician. I agree with the documented findings, disposition and treatment plan as described except to the extent set forth below. We independently had [id number] contact with the patient Patient seen and examined at bedside Labs, radiology, chart personally reviewed. Impression/Recs: Pericardial effusion with Physiology- blood pressure stable avoid over diuretic or normal blocking agents acutely; CT surgery following plan for pericardial window History of pulmonary embolus no clear evidence of pulmonary hypertension on echocardiogram continue anticoagulation which related to be on hold for surgery Acute respiratory failure stable oxygenation on nasal cannula O2 which can be weaned as tolerated. Pulmonary will sign off please call with any questions <Kelvin Smith - Last Filed: 12/11/18 14:54> Date of Encounter: 12/11/18 Time of Encounter: 13:06 Subjective Principal diagnosis: Pericardial effusion, pleural effusion, pulmonary embolism, breast cancer Interval history: Patient is a 78-year-old female who presented on Tuesday to the ED due to shortness of breath for 3 days as well as increasing lower extremity edema and orthopnea. Patient does have a history of multiple recurrent pulmonary embolisms and has a Rayle filter in place. Patient also has past medical history of breast cancer hypertension. Patient was found to have pericardial effusion bilateral pleural effusions upon subsequent ICU stay. Patient be taken today for pericardial window in bilateral Pleurx catheter placement. She otherwise awake alert oriented engaged conversation pleasant and appropriate to conversation states that she feels much better has no current concerns or comp laints at this time. A/P #Pericardial effusion Consider secondary to malignancy Small to moderate size Echo 12/09/18: Moderate pericardial effusion. RA systolic collapse and subtle RV diastolic collapse. Representation of early tamponade. LVEF 40-45%. Moderate global LV systolic dysfunction. Mild aortic and tricuspid regurg. No evidence of pulmonary hypertension Echo 12/10/18: Same read as previous. -Furosemide 40 IV twice a day -Patient taken for Pericardial window 12/11/18 We will reassess upon her return #Pleural effusion Consider malignant Bilateral Pleurx catheters to be placed this afternoon #Pulmonary embolism Risk factors include breast cancer, bilateral lower extremity edema, prior DVT, IVC filter Continue Heparin drip #Breast carcinoma Status post bilateral lumpectomy and radiation on both breasts. Left breast treated around 10 years ago. Right breast received 16 treatments of radiation last dose the first week of July. 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 Yanez #UTI Patient had a UA done on 12/06 secondary to urinary symptoms reported to nurse practitioner Lizabeth She was treated with nitrofurantoin and only took 3 pills of this Urine culture grew Klebsiella with intermediate sensitivity to nitrofurantoin -Cefazolin 1g bid day 2 of 5 Objective PUL Vital signs: Last Vital Signs Temp 97.7 F 12/11/18 11:58 Pulse 88 12/11/18 13:00 Resp 20 12/11/18 13:00 BP 169/87 12/11/18 13:00 Pulse Ox 99 12/11/18 13:00 General appearance: no acute distress, alert Eyes: nonicteric ENT: oropharynx moist Neck: supple Effort: normal Auscultation: bilateral: clear Cardiovascular: regular rate and rhythm Gastrointestinal: normoactive bowel sounds, soft, non-distended Integumentary: normal Extremities: no cyanosis Musculoskeletal: no deformities normal mental status, non-focal exam, pupils equal and round mood appropriate, affect normal Results - Laboratory Findings CBC and BMP: 12/10/18 02:38 12/10/18 02:38 ABG ABG pH 7.45 pH Units (7.32-7.45) 12/09/18 15:57 ABG pCO2 34 mmHg (35-45) L 12/09/18 15:57 ABG pO2 85 mmHg (85-104) 12/09/18 15:57 ABG O2 Saturation 97 % (95-98) 12/09/18 15:57 PT/INR, D-dimer PT 11.3 Seconds (9.4-12.1) 12/09/18 14:34 Abnormal lab findings: Abnormal lab results WBC 3.8 K/mcL (4.3-11.1) L 12/10/18 02:38 RBC 3.17 M/mcL (3.82-4.97) L 12/10/18 02:38 Hgb 10.0 g/dL (11.5-15.4) L D 12/10/18 02:38 Hct 30.3 % (35.3-44.9) L 12/10/18 02:38 Heparin Anti-Xa, Unfract 0.24 IU/mL (0.30-0.70) L 12/10/18 02:38 ABG pCO2 34 mmHg (35-45) L 12/09/18 15:57 BUN 39 mg/dL (8-23) H 12/10/18 02:38 Est GFR ( Amer) 55 (> 60) L 12/10/18 02:38 Est GFR (Non-Af Amer) 45 (> 60) L 12/10/18 02:38 BUN/Creatinine Ratio 34 (6-26) H 12/10/18 02:38 Troponin I 0.08 ng/mL (< 0.04) H* 12/10/18 02:38 B-Natriuretic Peptide 1659 pg/mL (Less than 100) H 12/09/18 11:02 Serum Total Protein 4.7 g/dL (6.4-8.9) L 12/10/18 02:38 Albumin 2.9 g/dL (3.5-5.7) L 12/10/18 02:38 Globulin 1.8 g/dL (2.4-3.5) L 12/10/18 02:38 Urine Protein 100 mg/dL (Neg-Trace) H 12/09/18 18:02 Urine Blood Moderate (Negative) H 12/09/18 18:02 Urine Microscopic RBC 5-15 per hpf (0-3) H 12/09/18 18:02 - Clinical Findings Intake & Output: Intake & Output 12/10/18 12/11/18 12/11/18 23:59 07:59 15:59 Intake Total 1001.1 / 1244.2 100 / 100 Output Total 1350 / 2850 450 / 1350 900 / 1350 Balance -348.9 / -1605.8 -350 / -1250 -900 / -1250 Weight 77.7 kg
[2018-12-11] MEDS ORDERED: *HR* Midazolam HCl 5 MG/5 ML VIAL IVP ONE (13:19)
[2018-12-11] MEDS ORDERED: *HR* FentaNYL (PF) 250 MCG/5 ML VIAL ONE (13:19)
[2018-12-11] MEDS ORDERED: *HR* Etomidate 20 MG/10 ML AMPUL IVP ONE (13:19)
[2018-12-11] MEDS ORDERED: *HR* Rocuronium Bromide 50 MG/5 ML VIAL ONE (13:19)
[2018-12-11] MEDS ORDERED: Dexamethasone 4 MG/ML VIAL ONE (14:05)
[2018-12-11] MEDS ORDERED: Ondansetron 4 MG/2 ML VIAL ONE (14:05)
[2018-12-11] MEDS ORDERED: Naloxone 0.4 MG/ML INJ ONE (14:46)
--- NOTE | 2018-12-11 14:57 | Operative Note ---
Date of procedure: 12/11/18 Pre-op diagnosis: pericardial and bilateral pleural effusions Post-op diagnosis: same Procedure: pericardial window, bilateral pleurx catheter insertion Anesthesia: GETA Local Anesthetics: 0.5% Sensorcaine HCL SubQ (cc), 1% Lidocaine HCL SubQ (cc) Surgeon: Fabian Ling Was there an placement assistant present: No Estimated blood loss (cc): 3 Specimen: pleural and pericardial effusion for cytology. pericardium for permanent Condition: stable Disposition: ICU Procedure in Detail: Patient was brought to the operating room and placed on the operating table in the supine position. After undergoing general anesthesia with sequential compressive devices onboard and perioperative antibiotics on board, she was prepped and draped in the usual sterile fashion. A subxiphoid pericardial window was created and 175 mL of serous fluid evacuated from the pericardium without difficulty. Portion of the pericardium was resected and sent for routine pathology. 24 Dov drain was placed through a separate skin incision and placed into the pericardium secured into place with a 0 silk suture. The incision was closed in layers of 0 Vicryl for the linea all the 0 Vicryl for the deep dermis, and 4-0 Monocryl for skin. Dressing consisting of Steri-Strips and sterile gauze. 2 small incisions were made on the left chest small incisions made on the right chest Pleurx catheter was tunneled and placed into the left pleural space the Pleurx tunnel was catheter was tunneled and placed into the right pleural space. Both incisions on the right chest and left chest were closed with interrupted 2-0 silk sutures in the right and left pleural catheter each drained 600 mL of serous fluid. Fluid was sent for cytology. Sterile dressings were applied. Patient was extubated and taken to the recovery room.
[2018-12-11] MEDS: Acetaminophen 325 MG TABLET PO PRN ×2 (15:36→19:26)
[2018-12-11] MEDS: *HR* Promethazine 25 MG/ML VIAL IVP PRN ×2 (16:29→21:55)
[2018-12-11] MEDS: *HR* HYDROcodone/Acet 5/325 mg TABLET PO PRN ×2 (16:29→21:55)
[2018-12-11] MEDS: ceFAZolin 1,000 MG in Water for inj. (sterile) 10 ML IVP SCH (17:06)
[2018-12-11] MEDS: Heparin 25,000 UNIT/250 ML D5W 25,000 UNIT/250 ML IV.SOLN IVC SCH (18:40)
--- NOTE | 2018-12-11 19:17 | Oncology Inp Consult Note ---
Date of Encounter: 12/11/18 Time of Encounter: 16:00 Assessment and Plan (1) Breast cancer in female Status: Chronic Assessment and plan: Hx russ breast cancers, s/p rt lumpectomy for LCIS and breast Rt conmpleted --not on adjuvant AI due to side effects and prior hx left breast stage I invasive ca s/p WBRT and adjuvant endocrine treatment for 2 yrs or so, admitted with SOB Echo evidence for early tamponade from pericardial effusion ?prior RT related s/p pericardial window. Cytology/path pending---will follow up Russ pleural effusions-s/p pleurex catheter drainage, hopefully can be removed once cytology is negative. Anasarca/Hypoalbuminemia--on wt loss program, possibly related. 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 Recent mammogram findings show no concerns for local recurrence (had f/u scheduled 12/20/18-which will be rescheduled) Plan reviewed with pt and family. Qualifiers: Breast location: upper outer quadrant of breast Estrogen receptor status: positive Laterality: bilateral Qualified Code(s): C50.411 - Malignant neoplasm of upper-outer quadrant of right female breast; C50.412 - Malignant ne oplasm of upper-outer quadrant of left female breast; Z17.0 - Estrogen receptor positive status [ER+] - Data of Consult Requesting Physician: Eli Brumfield Primary Care Provider: Nae Barone CNP - Consult Narrative Reason for consult: Hx breast cancer, pleural effusion History of present illness: 78 yo female with hx rt breast bx DCIS, final path lumpectomy05/19/18 showed LCIS low grade, LN bx was negative. She completed rt breast RT ~09/03. --Hx left breast cancer T1c N0 M0 Stage I, 11/01, LN were negative--ER was positive took AI 2 yrs then d/rom due to clots, s/p lt Breast RT . She has hx fractures and declined AI after rt breast LCIS as well. Hx CVA and osteopenia. She has cr lower ext swelling, hospitalized with worsening of leg swelling and SOB. CTA chest and abdomen had shown-cr PE russ pleural and moderate pericardial effusion. Due to symptoms, she underwent russ pleurex catheters and pericardial window. She has discomfort at CT site. She has nausea with pain meds and tolerates poorly. On oxygen NC, denies other complaints. A mammogram 12/04 did not show any evidence for recurrence. She denies leg pain- doppler was negative for DVT. She also has an IVC filter in place. Past Med Surg Social Fam HX - Past Medical History Medical history: cancer, CVA, DVT, diabetes, hyperlipidemia, hypertension, osteoporosis Additional medical history: bilateral femur fx, left wrist fx, L breast CA, diverticulosis, BCC, actinic keratosis Psychiatric history: no psych history - Past Surgical History Surgical History: appendectomy, breast surgery, cholecystectomy, knee replacement, orthopedic, other, other Additional surgical history: tonsillectomy, L breast lumpectomy, nolan in R leg, IVC filter, colonoscopy, ORIF L leg, BCC removed from nose - Social History Smoking Status: Never smoker Smokeless Tobacco Status: No Alcohol use: none Drug use: none Medications and Allergies Aspirin 81 mg PO DAILY 12/23/15 [History] Ca/D3/Mag#11/Zinc/Hand Packager/Bonifacio/Bor [Caltrate 600+D Plus Tablet] 1 each PO BID 12/23/15 [History] Calcitonin,[place],Synthetic [Calcitonin-[place]] 1 spr NS DAILY 12/23/15 [History] Cranberry Conc/Ascorbic Acid [Cranberry Plus Vitamin C Sftgl] 1 each PO DAILY 12/23/15 [History] Potassium 99 mg PO DAILY 12/23/15 [History] Lisinopril/Hydrochlorothiazide [Zestoretic 10-12.5 mg Tablet] 4 each PO DAILY 12/20/17 [History] Cholecalciferol (D-3) [Vitamin D] 2,000 unit PO DAILY 12/09/18 [History] Furosemide [Lasix] 40 mg PO DAILY 12/09/18 [History] Metoprolol Succinate [Toprol Xl] 25 mg PO DAILY 12/09/18 [History] Nitrofurantoin Macrocrystal [Nitrofurantoin] 100 mg PO BID 12/09/18 [History] Allergy/AdvReac Type Severity Reaction Status Date / Time hydrocodone AdvReac Unknown Vomiting Verified 08/24/18 10:43 indomethacin AdvReac Unknown Vomiting Verified 08/24/18 10:43 morphine AdvReac Unknown Vomiting Verified 08/24/18 10:43 codeine AdvReac Vomiting Verified 08/24/18 10:43 oxycodone AdvReac Vomiting Verified 08/24/18 10:43 Constitutional: Present: fatigue, weight gain Cardiovascular: Present: dyspnea Additional comments: discomfort due to recent procedure. SOB on Oxygen Additional comments: nausea. No vomiting or abd pain Musculoskeletal: Present: arthralgias Additional comments: denies headaches or diziiness Additional comments: hx blood clots, leg swelling Oncology - Exam - Constitutional General appearance: mild distress - Head Head exam: Present: atraumatic, normal inspection - Eye Eye exam: Present: sclera anicteric - ENT ENT exam: Present: mucous membranes moist - Neck Neck exam: Present: full ROM - Respiratory Respiratory exam: Present: CTAB Additional comments: CT draining pink fluid - Cardiovascular Cardiovascular exam: Present: +S1, +S2 - GI/Abdominal GI/Abdominal exam: Present: normal bowel sounds, soft - Extremities Exam Extremities exam: Present: pedal edema - Neurological Exam Neurological exam: Present: alert, oriented X3, no focal deficits - Psychiatric Psychiatric exam: Present: normal mood - Skin Skin exam: Present: normal color, warm Oncology Inpatient Results Labs: mild leucopenia anemia alb 2.7 CTA chest abd per HPI Consult Discharge Plan - Plan Referrals: Nae Barone, BUS AND TROLLEY DISPATCHER [Primary Care Provider] - Inpatient Charges Provider: Dr. Sarah Yanez Consult - Inpatient: [id number]
[2018-12-12] MEDS: *HR* Promethazine 25 MG/ML VIAL IVP PRN ×2 (03:22→21:15)
[2018-12-12] MEDS: *HR* HYDROcodone/Acet 5/325 mg TABLET PO PRN ×2 (03:22→21:15)
[2018-12-12 05:07] LABS: Basophils % 0.2 %; Eosinophils % 0.1 %; Hematocrit 39.7 % (35.3-44.9); Immature Granulocytes % 0.5 % (0-4); Lymphocytes # 0.5 K/mcL (0.6-4.6); Lymphocytes % 5.7 %; Mean Corpuscular Hemoglobin 30.7 pg (28.0-33.3); Mean Corpuscular Volume 95.9 fL (83.0-100.0); Mean Platelet Volume 10.5 fL (9.4-12.4); Monocytes # 0.8 K/mcL (0.0-1.3); Monocytes % 9.2 %; Platelet Count 213 K/mcL (140-400); Red Blood Count 4.14 M/mcL (3.82-4.97); Segmented Neutrophils % 84.3 %
[2018-12-12 05:08] LABS: Hemoglobin 12.7 g/dL (11.5-15.4); Neutrophils # 7.1 K/mcL (1.6-8.9); White Blood Count 8.4 K/mcL (4.3-11.1)
[2018-12-12 05:33] LABS: Albumin 3.1 g/dL (3.5-5.7); Albumin/Globulin Ratio 1.6 (1.1-2.2); Bilirubin,Direct 0.1 mg/dL (0.0-0.2); Bilirubin,Indirect 0.4 mg/dL (0.0-1.2); Bilirubin,Total 0.5 mg/dL (0.3-1.0); Chol/HDL Ratio 3.4 (0-4.9); Globulin 1.9 g/dL (2.4-3.5); Potassium 4.1 mEq/L (3.5-5.1)
[2018-12-12 05:35] LABS: Troponin I 0.11 ng/mL (< 0.04)
[2018-12-12] MEDS: ceFAZolin 1,000 MG in Water for inj. (sterile) 10 ML IVP SCH ×2 (06:03→18:16)
[2018-12-12 08:46] LABS: Magnesium 1.7 mg/dL (1.6-2.6)
[2018-12-12] MEDS: Aspirin Enteric Coated 81 MG Tablet PO SCH (08:47)
[2018-12-12] MEDS: Furosemide 40 MG/4 ML VIAL IVP SCH (08:47)
[2018-12-12] MEDS: Metoprolol XL (24 HR) Succ 25 MG TAB.ER.24H PO SCH (08:47)
[2018-12-12] MEDS: Heparin 25,000 UNIT/250 ML D5W 25,000 UNIT/250 ML IV.SOLN IVC SCH (10:57)
--- NOTE | 2018-12-12 12:29 | Cardiothoracic Progress Note ---
Date of Encounter: 12/12/18 Time of Encounter: :27 - Assessment and plan (1) Pericardial effusion Current Visit: Yes Status: Acute The assessment and plan as outlined above was discussed with the patient and/or family members who expressed understanding and agreement. All questions were answered. continue active suction (2) Pleural effusion Current Visit: Yes Status: Acute The assessment and plan as outlined above was discussed with the patient and/or family members who expressed understanding and agreement. All questions were answered. no changes in pleurx catheter management Vital Signs, Last 4 Hours Temp Pulse Resp BP Pulse Ox 12/12/18 12:00 89 20 155/87 92 12/12/18 11:47 98.6 F 12/12/18 11:00 94 20 149/83 96 12/12/18 10:00 85 20 125/65 97 12/12/18 09:00 85 16 122/67 96 Oxgyen Flow Rate Oxygen Flow Rate (LPM) 2 Clinical Data, last 8 Hours Output, Chest Tube Drainage 0 Amount [mediastinal] Output, Chest Tube Drainage 8 Amount [mediastinal] Output, Chest Tube Drainage 7 Amount [mediastinal] Weight 12/10/18 12/11/18 12/12/18 23:59 23:59 23:59 Weight 76.3 kg 77.7 kg 76.2 kg - Physical Examination General: Conversant, No Apparent Distress Neck: No JVD Cardiac: Reg Rate and Rhythm, Normal S1 and S2 Chest tubes: Minimal drainage Lungs: Decreased breath sounds Neuro: Alert and responsive, No focal deficits noted, Cranial nerves intact, Motor nerves intact - Labs 12/12/18 04:39 12/12/18 04:39 Lab Results, Last 24 hours 12/12/18 12/12/18 04:39 04:39 WBC 8.4 D Hgb 12.7 D Hct 39.7 Plt Count 213 Sodium 141 Potassium 4.1 Chloride 105 Carbon Dioxide 26 BUN 44 H Creatinine 1.49 H Glucose 150 H Calcium 9.0 Magnesium 1.7 Total Bilirubin 0.5 AST 22 ALT 13 Alkaline Phosphatase 46 Troponin I 0.11 H* Consult Discharge Plan - Plan Referrals: Nae Barone, COUNSELING AIDE [Primary Care Provider] -
[2018-12-12] MEDS: Acetaminophen 325 MG TABLET PO PRN ×2 (13:22→16:09)
--- NOTE | 2018-12-12 14:28 | Anesthesia Evaluation Post Op ---
Date of Encounter: 12/12/18 Time of Encounter: 13:30 - Vital Signs Vital Signs: Selected Entries 12/12/18 11:47 12/12/18 13:00 Temperature 98.6 F Pulse Rate 91 Respiratory Rate 18 Blood Pressure 136/97 O2 Sat by Pulse Oximetry 98 Oxygen Flow Rate (LPM) 2 Oxygen Delivery Method Nasal Cannula - Lungs Lungs: Clear Ascult./Percussion - Airway Airway: Non-obstructed - Cardiovascular Regular Rate - Mental Status Mental Status: Alert & Oriented, Answers Appropriately - Pain Pain Scale: 3 Pain Scale used: Numeric (1 - 10) - Nausea Vomiting Nausea Vomiting: Not Present Notes: 12/12/18 14:28 no apparent anesthesia complications
--- NOTE | 2018-12-12 15:21 | Internal Med Progress Note ---
Hospitalist Progress Note - Encounter Date of Encounter: 12/12/18 Time of Encounter: 15:21 - Subjective Interval History: I have seen and evaluated the patient at bedside. patient denies chest pain or shortness of breath. reported the edema on the lower extremities is decreasing. - Exam Vitals: Temp Pulse Resp BP Pulse Ox 98.6 F 93 26 148/84 92 12/12/18 11:47 12/12/18 14:00 12/12/18 14:00 12/12/18 14:00 12/12/18 14:00 Exam: Vitals: Reviewed General: Alert and oriented x4. In no distress Cardiovascular: RRR, normal S1 & S2, no rubs, murmurs or gallops. Lungs: No wheezes, crackles left lower lobe. Abdomen: Obese, soft, non-tender, no rigidity. Extremities: Anasarca Neurological: No focal neurological abnormalities. Rest of the physical exam is non contributory - Assessment and Plan (1) Pulmonary embolism Current Visit: Yes Status: Acute Assessment and Plan: continue heparin drip (2) Anasarca Current Visit: Yes Status: Chronic (3) Pulmonary hypertension Current Visit: Yes Status: Chronic (4) Ductal carcinoma in situ (DCIS) of right breast Current Visit: No Status: Chronic Assessment and Plan: AJCC clinical stage [id number] DCIS/lobular carcinoma in situ of the right breast status post lumpectomy with negative margins and negative sentinel lymph node examination. 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 (5) Hypertension Current Visit: No Status: Chronic Assessment and Plan: BP is well controlled continue furosemide and metoprolol. 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 total fluids balance negative 3.7 litters a day. decrease furosemide to 40mg/IV daily, patient with worsening kidney function. on a bb consider adding an ACEs when kidney function has returned to baseline. (8) Pericardial effusion Current Visit: Yes Status: Acute Assessment and Plan: patient with signs of early cardiac tamponade. s/p pericardial window, bilateral pleurx catheter insertion. chest tube management per CT surgery. on cefazolin 1gm/IV Q12HRs (9) GHADA (acute kidney injury) Current Visit: Yes Status: Acute Assessment and Plan: possible due to diuretics. furosemide decreased to 40mg/IV daily. will reassess kidney function tomorrow. DVT Prophylaxis: intermittent pneumatic compression for dvt prophylaxis. - Summary of Assessment and Plan Summary of Assessment and Plan: patient to remain in the hospital. chest tube still in place. - Time Spent with Patient Total time spent is greater than 50% in coordination of care (as documented) at patient's floor/unit and/or counseling patient: Greater than 35 minutes (45) Plan of Care Discussed with: patient (her and the nurse) Internal Medicine: Result - Labs CBC & Chem 7: 12/12/18 04:39 12/12/18 04:39 Labs: Short CBC 12/12/18 Range/Units 04:39 WBC 8.4 D (4.3-11.1) K/mcL Hgb 12.7 D (11.5-15.4) g/dL Hct 39.7 (35.3-44.9) % Plt Count 213 (140-400) K/mcL Neutrophils # 7.1 (1.6-8.9) K/mcL BMP 12/12/18 04:39 Sodium 141 Potassium 4.1 Chloride 105 Carbon Dioxide 26 BUN 44 H Creatinine 1.49 H Glucose 150 H Calcium 9.0 Cardiac Enzymes 12/12/18 Range/Units 04:39 Troponin I 0.11 H* (< 0.04) ng/mL Liver Function 12/12/18 Range/Units 04:39 Total Bilirubin 0.5 (0.3-1.0) mg/dL Direct Bilirubin 0.1 (0.0-0.2) mg/dL AST 22 (13-39) Units/L ALT 13 (7-52) Units/L Alkaline Phosphatase 46 (34-104) Units/L Albumin 3.1 L (3.5-5.7) g/dL - ABG Interpretation ABG results: ABG ABG pH 7.45 pH Units (7.32-7.45) 12/09/18 15:57 ABG pCO2 34 mmHg (35-45) L 12/09/18 15:57 ABG pO2 85 mmHg (85-104) 12/09/18 15:57 ABG O2 Saturation 97 % (95-98) 12/09/18 15:57 PT/INR, D-dimer PT 11.3 Seconds (9.4-12.1) 12/09/18 14:34 - Impressions Impressions Chest X-Ray 12/12/18 04:00 IMPRESSION: New tubing overlies the lower chest bilaterally presumably related to the history of bilateral chest tubes. No pneumothorax identified. There is bibasilar airspace disease, left greater than right presumably related to atelectasis. Stable cardiomegaly. D/ / Corey Coronado MD / Corey Coronado MD Interpreting Provider: Corey Coronado MD Consult Discharge Plan - Plan Referrals: Nae Barone, REHABILITATION SPECIALIST [Primary Care Provider] - (1) Pulmonary embolism Qualifiers: Pulmonary embolism type: unspecified Chronicity: unspecified Acute cor pulmonale presence: without acute cor pulmonale Qualified Code(s): I26.99 - Other pulmonary embolism without acute cor pulmonale (5) Hypertension Qualifiers: Hypertension type: essential hypertension Qualified Code(s): I10 - Essential (primary) hypertension (7) CHF (congestive heart failure) Qualifiers: Heart failure type: systolic Heart failure chronicity: acute on chronic Qualified Code(s): I50.23 - Acute on chronic systolic (congestive) heart failure
[2018-12-13 01:15] LABS: Calcium 8.1 mg/dL (8.6-10.3); Magnesium 1.7 mg/dL (1.6-2.6); Phosphorous 4.3 mg/dL (2.7-4.5); Potassium 4.2 mEq/L (3.5-5.1)
[2018-12-13] MEDS: ceFAZolin 1,000 MG in Water for inj. (sterile) 10 ML IVP SCH ×2 (05:19→18:05)
--- NOTE | 2018-12-13 08:24 | Cardiothoracic Progress Note ---
Date of Encounter: 12/13/18 Time of Encounter: 08:23 - Assessment and plan (1) Pericardial effusion Current Visit: Yes Status: Acute The assessment and plan as outlined above was discussed with the patient and/or family members who expressed understanding and agreement. All questions were answered. continue active suction communication order to stop heparin gtt at md for drain removal tomorrow. (2) Pleural effusion Current Visit: Yes Status: Acute The assessment and plan as outlined above was discussed with the patient and/or family members who expressed understanding and agreement. All questions were answered. no changes in pleurx catheter management Vital Signs, Last 4 Hours Temp Pulse Resp BP Pulse Ox 12/13/18 07:33 100.0 F H 12/13/18 07:00 99 26 115/59 96 12/13/18 06:00 91 24 115/65 95 12/13/18 05:00 87 23 109/60 95 Oxgyen Flow Rate Oxygen Flow Rate (LPM) 2 Clinical Data, last 8 Hours Output, Chest Tube Drainage 82 Amount [mediastinal] Weight 12/11/18 12/12/18 12/13/18 23:59 23:59 23:59 Weight 77.7 kg 76.2 kg - Physical Examination General: Conversant, No Apparent Distress HEENT: Atraumatic Cardiac: Reg Rate and Rhythm, Normal S1 and S2 Incision: No signs of infection Chest tubes: Minimal drainage Lungs: Normal Breath Sounds - Labs 12/12/18 04:39 12/13/18 00:42 Lab Results, Last 24 hours 12/12/18 12/13/18 04:39 00:42 Sodium 141 136 Potassium 4.1 4.2 Chloride 105 102 Carbon Dioxide 26 26 BUN 44 H 57 H Creatinine 1.49 H 2.17 H Glucose 150 H 126 H Calcium 9.0 8.1 L Magnesium 1.7 1.7 Total Bilirubin 0.5 AST 22 ALT 13 Alkaline Phosphatase 46 Troponin I 0.11 H* Consult Discharge Plan - Plan Referrals: Nae Barone, EMERGENCY RESPONSE TECHNICIAN [Primary Care Provider] -
[2018-12-13] MEDS: Aspirin Enteric Coated 81 MG Tablet PO SCH (08:50)
[2018-12-13] MEDS: Metoprolol XL (24 HR) Succ 25 MG TAB.ER.24H PO SCH (08:50)
[2018-12-13] MEDS ORDERED: Furosemide 40 MG/4 ML VIAL IVP SCH (09:00)
[2018-12-13 13:31] LABS: Basophils % 0.2 %; Eosinophils # 0.3 K/mcL (0.0-0.6); Eosinophils % 5.2 %; Hematocrit 30.9 % (35.3-44.9); Immature Granulocytes % 0.4 % (0-4); Lymphocytes # 0.7 K/mcL (0.6-4.6); Lymphocytes % 11.8 %; Mean Corpuscular Hemoglobin 31.2 pg (28.0-33.3); Mean Corpuscular Volume 94.5 fL (83.0-100.0); Mean Platelet Volume 10.4 fL (9.4-12.4); Monocytes # 0.5 K/mcL (0.0-1.3); Monocytes % 8.9 %; Neutrophils # 4.1 K/mcL (1.6-8.9); Platelet Count 154 K/mcL (140-400); Red Blood Count 3.27 M/mcL (3.82-4.97); Red Cell Distribution Width 13.1 % (11.5-14.5); Segmented Neutrophils % 73.5 %; White Blood Count 5.6 K/mcL (4.3-11.1)
[2018-12-13 13:36] LABS: Hemoglobin 10.2 g/dL (11.5-15.4)
[2018-12-13] MEDS: Heparin 25,000 UNIT/250 ML D5W 25,000 UNIT/250 ML IV.SOLN IVC SCH (13:38)
--- NOTE | 2018-12-13 20:26 | Internal Med Progress Note ---
Hospitalist Progress Note - Encounter Date of Encounter: 12/13/18 Time of Encounter: 14:30 - Subjective Interval History: Ms adams reports feeling better status post pericardial window and with placement of bilateral Pleurx catheter, she report some chest discomfort. She denies being sedentary but did admit to worsening dyspnea with exertion GEN: Denies fever, chills or malaise HEENT: Denies headache blurriness, or dysphagia RESP: admits to SOB or cough CV: Denies chest pain or palpitations GI: Denies Nausea, vomiting, diarrhea or constipation Reviewed current in hospital medications with modifications see orders Reviewed Routine labs - Exam Vitals: Temp Pulse Resp BP Pulse Ox 99.6 F 100 19 129/68 97 12/13/18 15:51 12/13/18 20:00 12/13/18 20:00 12/13/18 20:00 12/13/18 20:00 Exam: GEN: NAD, A&O x 3, Pleasant and conversant at the bedside SKIN: [place] warm acyanotic not jaundice dressing covering surgical site on chest clean dry and intact HEART: RRR, no murmurs LUNGS: Diminished no wheeze or crackles, overall non labored, bilateral Pleurx catheter noted ABDOMEN; Soft, non tender or distended, BS x 4 normactive EXT: diffuse bilateral edema, Pedal pulses 1+, radial pulses 2+ PSYCH: Mood and affect is appropriate - Assessment and Plan (1) GHADA (acute kidney injury) Current Visit: Yes Status: Acute Assessment and Plan: Serum creatinine appears to be worsening local be multifactorial from hypoperfusion, poor cardiac output from poor EF given diffuse bilateral LE edema diuresis is indicated and hopefully once she is euvolemic cardiac output should improve we should thus improve renal perfusion will continue to monitor clinically correlate (2) Anasarca Current Visit: Yes Status: Chronic Assessment and Plan: Likely multifactorial and underlying etiology for pleural effusion and cardiac tamponade continue to encourage oral intake, (3) Pulmonary embolism Current Visit: Yes Status: Acute Assessment and Plan: continue heparin drip, will likely transition to oral anti factor X a (4) Ductal carcinoma in situ (DCIS) of right breast Current Visit: Yes Status: Chronic Assessment and Plan: AJCC clinical stage [id number] DCIS/lobular carcinoma in situ of the right breast status post lumpectomy with negative margins and negative sentinel lymph node examination. 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 (5) Pulmonary hypertension Current Visit: Yes Status: Chronic Assessment and Plan: possible classification within the Group 4. outpatient pulmonary follow-up (6) Hypertension Current Visit: No Status: Chronic Assessment and Plan: Normotensive (7) Superior mesenteric artery stenosis Current Visit: Yes Status: Chronic Assessment and Plan: Chronic will monitor, and clinically correlate (8) Pericardial effusion Current Visit: Yes Status: Acute Assessment and Plan: . s/p pericardial window, bilateral pleurx catheter insertion. chest tube management per CT surgery. (9) CHF (congestive heart failure) Current Visit: Yes Status: Acute Assessment and Plan: last estimated ef: 40-45%. total fluids balance negative 4.3 litters a day. She does appear to have diffuse left bilateral lower extremity edema we will have to continue diuresis. DVT Prophylaxis: On heparin drip - Time Spent with Patient Total time spent is greater than 50% in coordination of care (as documented) at patient's floor/unit and/or counseling patient: Internal Medicine: Result - Labs CBC & Chem 7: 12/13/18 13:03 12/13/18 00:42 Labs: Short CBC 12/13/18 Range/Units 13:03 WBC 5.6 (4.3-11.1) K/mcL Hgb 10.2 L D (11.5-15.4) g/dL Hct 30.9 L (35.3-44.9) % Plt Count 154 (140-400) K/mcL Neutrophils # 4.1 (1.6-8.9) K/mcL BMP 12/13/18 00:42 Sodium 136 Potassium 4.2 Chloride 102 Carbon Dioxide 26 BUN 57 H Creatinine 2.17 H Glucose 126 H Calcium 8.1 L - ABG Interpretation ABG results: ABG ABG pH 7.45 pH Units (7.32-7.45) 12/09/18 15:57 ABG pCO2 34 mmHg (35-45) L 12/09/18 15:57 ABG pO2 85 mmHg (85-104) 12/09/18 15:57 ABG O2 Saturation 97 % (95-98) 12/09/18 15:57 PT/INR, D-dimer PT 11.3 Seconds (9.4-12.1) 12/09/18 14:34 Consult Discharge Plan - Plan Referrals: Nae Barone, VOICE NETWORK ADMINISTRATOR [Primary Care Provider] - (3) Pulmonary embolism Qualifiers: Pulmonary embolism type: unspecified Chronicity: unspecified Acute cor pulmonale presence: without acute cor pulmonale Qualified Code(s): I26.99 - Other pulmonary embolism without acute cor pulmonale (6) Hypertension Qualifiers: Hypertension type: essential hypertension Qualified Code(s): I10 - Essential (primary) hypertension (9) CHF (congestive heart failure) Qualifiers: Heart failure type: systolic Heart failure chronicity: acute on chronic Qualified Code(s): I50.23 - Acute on chronic systolic (congestive) heart failure
[2018-12-13] MEDS: *HR* HYDROcodone/Acet 5/325 mg TABLET PO PRN (21:03)
[2018-12-13] MEDS: *HR* Promethazine 25 MG/ML VIAL IVP PRN (21:03)
[2018-12-14 04:14] LABS: Eosinophils # 0.3 K/mcL (0.0-0.6); Eosinophils % 6.1 %; Hematocrit 29.6 % (35.3-44.9); Hemoglobin 9.6 g/dL (11.5-15.4); Immature Granulocytes % 0.2 % (0-4); Lymphocytes # 0.4 K/mcL (0.6-4.6); Lymphocytes % 9.9 %; Mean Corpuscular HGB Conc 32.4 g/dL (31.6-35.5); Mean Corpuscular Hemoglobin 30.5 pg (28.0-33.3); Mean Platelet Volume 10.4 fL (9.4-12.4); Monocytes # 0.3 K/mcL (0.0-1.3); Monocytes % 6.3 %; Neutrophils # 3.2 K/mcL (1.6-8.9); Platelet Count 143 K/mcL (140-400); Red Blood Count 3.15 M/mcL (3.82-4.97); Red Cell Distribution Width 13.2 % (11.5-14.5); Segmented Neutrophils % 77.5 %; White Blood Count 4.1 K/mcL (4.3-11.1)
[2018-12-14 04:34] LABS: Magnesium 1.8 mg/dL (1.6-2.6); Phosphorous 3.4 mg/dL (2.7-4.5)
[2018-12-14] MEDS: ceFAZolin 1,000 MG in Water for inj. (sterile) 10 ML IVP SCH (06:26)
[2018-12-14] MEDS ORDERED: Furosemide 40 MG/4 ML VIAL IVP SCH (09:00)
[2018-12-14] MEDS ORDERED: Cholecalciferol (D-3) 1,000 UNIT (25MCG) TABLET PO SCH (09:00)
--- NOTE | 2018-12-14 09:54 | Cardiothoracic Progress Note ---
Date of Encounter: 12/14/18 Time of Encounter: 09:53 - Assessment and plan (1) Pericardial effusion Current Visit: Yes Status: Acute The assessment and plan as outlined above was discussed with the patient and/or family members who expressed understanding and agreement. All questions were answered. removed drain. start xarelto (2) Pleural effusion Current Visit: Yes Status: Acute The assessment and plan as outlined above was discussed with the patient and/or family members who expressed understanding and agreement. All questions were answered. no changes in pleurx catheter management Vital Signs, Last 4 Hours Temp Pulse Resp BP Pulse Ox 12/14/18 07:33 99.7 F H 12/14/18 07:20 95 24 122/59 96 12/14/18 06:00 94 22 120/60 96 Oxgyen Flow Rate Oxygen Flow Rate (LPM) 2 Clinical Data, last 8 Hours Output, Chest Tube Drainage 20 Amount [mediastinal] Output, Chest Tube Drainage 10 Amount [mediastinal] Weight 12/12/18 12/13/18 12/14/18 23:59 23:59 23:59 Weight 76.2 kg 77.2 kg - Physical Examination General: Conversant, No Apparent Distress HEENT: Atraumatic, Normocephaly Cardiac: Reg Rate and Rhythm, Normal S1 and S2 Incision: No signs of infection, Dry/intact dressing, Open to air Chest tubes: Minimal drainage Lungs: Decreased breath sounds Neuro: Alert and responsive, No focal deficits noted, Cranial nerves intact, Motor nerves intact Vascular: Normal capillary refill Abdomen: Soft, Non-tender - Labs 12/14/18 03:42 12/14/18 03:42 Lab Results, Last 24 hours 12/13/18 12/13/18 12/14/18 09:53 13:03 03:42 WBC 5.6 4.1 L Hgb 10.2 L D 9.6 L Hct 30.9 L 29.6 L Plt Count 154 143 Sodium Potassium Chloride Carbon Dioxide BUN Creatinine Glucose Calcium Magnesium 1.7 12/14/18 03:42 WBC Hgb Hct Plt Count Sodium 138 Potassium 4.0 Chloride 101 Carbon Dioxide 29 BUN 65 H Creatinine 1.92 H Glucose 111 H Calcium 8.0 L Magnesium 1.8 Consult Discharge Plan - Plan Referrals: Nae Barone, GROUP UNDERWRITER [Primary Care Provider] -
[2018-12-14] MEDS ORDERED: Metoprolol XL (24 HR) Succ 50 MG TAB.ER.24H PO SCH (09:55)
[2018-12-14] MEDS: Metoprolol XL (24 HR) Succ 25 MG TAB.ER.24H PO SCH (09:58)
[2018-12-14] MEDS: Aspirin Enteric Coated 81 MG Tablet PO SCH (09:58)
[2018-12-14] MEDS ORDERED: *HR* Rivaroxaban 10 MG TABLET PO SCH (17:00)
--- NOTE | 2018-12-14 19:31 | Internal Med Progress Note ---
Hospitalist Progress Note - Encounter Date of Encounter: 12/14/18 Time of Encounter: 16:00 - Subjective Interval History: Ms Xiao was complaining of left upper extremity pain venous duplex reveals superficial venous thrombosis. Patient was initially refusing for insertion of IV access in the right arm upon further deliberation with the patient and her family is now agreeable, also discussed and updated the patient's family on the treatment plan and discharge planning with potential of her being discharged to an ECF for continued rehabilitation. She is complaining of hyperalgesia of her bilateral lower extremity GEN: Denies fever, chills or malaise HEENT: Denies headache blurriness, or dysphagia RESP: Denies SOB or cough CV: Denies chest pain or palpitations GI: Denies Nausea, vomiting, diarrhea or constipation Reviewed current in hospital medications with modifications see orders Reviewed Routine labs - Exam Vitals: Temp Pulse Resp BP Pulse Ox 98.8 F 102 22 119/63 94 12/14/18 15:31 12/14/18 18:00 12/14/18 18:00 12/14/18 13:15 12/14/18 18:00 Exam: GEN: NAD, A&O x 3, Pleasant and conversant 2 daughters and son at the bedside SKIN: [place] warm acyanotic not jaundice HEART: RRR, no murmurs LUNGS: Diminished no wheeze or crackles, overall non labored, bilateral Pleurx catheter noted ABDOMEN; Soft, non tender or distended, BS x 4 normactive EXT: Trace bilateral lower extremity edema Pedal pulses 1+, radial pulses 2+ PSYCH: Mood and affect is appropriate Neuro hyperalgesia noted in bilateral lower extremity - Assessment and Plan (1) Superficial venous thrombosis of right arm Current Visit: Yes Status: Acute Assessment and Plan: Conservative treatment measures (2) Hyperalgesia Current Visit: Yes Status: Acute Assessment and Plan: s/p alber wrap bilateral LE, Pulses intact skin turgor intact no cyanosis. We will discontinue Alber wrap suspect underlying PAD she denies prior neuropathy (3) CHF (congestive heart failure) Current Visit: Yes Status: Acute Assessment and Plan: last estimated ef: 40-45%. total fluids balance negative 4.8 litters so far, trace lower extremity edema we will switch to oral Lasix (4) GHADA (acute kidney injury) Current Visit: Yes Status: Acute Assessment and Plan: As anticipated. improving now 2.17-1.92 Serum creatinine appears to be worsening local be multifactorial from hypoperfusion, poor cardiac output from poor EF given diffuse bilateral LE edema diuresis is indicated and hopefully once she is euvolemic cardiac output should improve we should thus improve renal perfusion will continue to monitor clinically correlate (5) Anasarca Current Visit: Yes Status: Chronic Assessment and Plan: Likely multifactorial and underlying etiology for pleural effusion and cardiac tamponade continue to encourage oral intake, (6) Pulmonary embolism Current Visit: Yes Status: Acute Assessment and Plan: now on xarelto (7) Ductal carcinoma in situ (DCIS) of right breast Current Visit: Yes Status: Chronic Assessment and Plan: AJCC clinical stage [id number] DCIS/lobular carcinoma in situ of the right breast status post lumpectomy with negative margins and negative sentinel lymph node examination. 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 (8) Pulmonary hypertension Current Visit: Yes Status: Chronic Assessment and Plan: possible classification within the Group 4. outpatient pulmonary follow-up (9) Hypertension Current Visit: No Status: Chronic Assessment and Plan: Normotensive (10) Pericardial effusion Current Visit: Yes Status: Acute Assessment and Plan: . s/p pericardial window, bilateral pleurx catheter insertion. chest tube management per CT surgery. (11) Superior mesenteric artery stenosis Current Visit: Yes Status: Chronic Assessment and Plan: Chronic will monitor, and clinically correlate - Time Spent with Patient Total time spent is greater than 50% in coordination of care (as documented) at patient's floor/unit and/or counseling patient: Internal Medicine: Result - Labs CBC & Chem 7: 12/14/18 03:42 12/14/18 03:42 Labs: Short CBC 12/14/18 Range/Units 03:42 WBC 4.1 L (4.3-11.1) K/mcL Hgb 9.6 L (11.5-15.4) g/dL Hct 29.6 L (35.3-44.9) % Plt Count 143 (140-400) K/mcL Neutrophils # 3.2 (1.6-8.9) K/mcL BMP 12/14/18 03:42 Sodium 138 Potassium 4.0 Chloride 101 Carbon Dioxide 29 BUN 65 H Creatinine 1.92 H Glucose 111 H Calcium 8.0 L - ABG Interpretation ABG results: ABG ABG pH 7.45 pH Units (7.32-7.45) 12/09/18 15:57 ABG pCO2 34 mmHg (35-45) L 12/09/18 15:57 ABG pO2 85 mmHg (85-104) 12/09/18 15:57 ABG O2 Saturation 97 % (95-98) 12/09/18 15:57 PT/INR, D-dimer PT 11.3 Seconds (9.4-12.1) 12/09/18 14:34 Consult Discharge Plan - Plan Referrals: Nae Barone, BRIQUETTE MOLDER [Primary Care Provider] - (3) CHF (congestive heart failure) Qualifiers: Heart failure type: systolic Heart failure chronicity: acute on chronic Qualified Code(s): I50.23 - Acute on chronic systolic (congestive) heart failure (6) Pulmonary embolism Qualifiers: Pulmonary embolism type: unspecified Chronicity: unspecified Acute cor pulmonale presence: without acute cor pulmonale Qualified Code(s): I26.99 - Other pulmonary embolism without acute cor pulmonale (9) Hypertension Qualifiers: Hypertension type: essential hypertension Qualified Code(s): I10 - Essential (primary) hypertension
[2018-12-14] MEDS ORDERED: Furosemide 40 MG TABLET PO SCH (21:00)
[2018-12-14] MEDS: Acetaminophen 325 MG TABLET PO PRN (21:34)
--- NOTE | 2018-12-14 21:48 | Event Note ---
Date of Encounter: 12/14/18 Time of Encounter: 20:25 Alerted by patient's nurse SCOTT Greco that patient had just arrived from ICU. Family concerned about a rash noticed after patient was given Xarelto for the first time. Went tot see the patient who was resting in bed. Examined patient's bilateral LEs and abdomen. Rash is a erythematous pinpoint rash that is also warm to the touch. Patient denies itching. Patient and family state that she is not to have any blood draws for three days d/t blood clots. I originally wished to order blood cultures, but pt. and daughter said no. Discussed IVP Benadryl for current rash but pt. stated she doesn't want it through her IV. One-time dose of by mouth Benadryl 25 mg ordered. Nurse instructed to monitor rash over the next hour for worsening or improvement. Will give an additional 25 mg Benadryl PO if warranted. Nurse instructed to monitor pt. closely and alert me immediately of any adverse changes.
[2018-12-15] MEDS ORDERED: Acetaminophen 325 MG TABLET PO PRN (02:28)
[2018-12-15] MEDS ORDERED: Ondansetron ODT 4 MG TAB.RAPDIS SL PRN (02:28)
[2018-12-15] MEDS ORDERED: *HR* HYDROcodone/Acet 5/325 mg TABLET PO PRN (02:28)
[2018-12-15] MEDS ORDERED: Naloxone 0.4 MG/ML INJ IVP PRN (02:28)
[2018-12-15] MEDS ORDERED: *HR* Promethazine 25 MG/ML VIAL IVP PRN (02:28)
[2018-12-15] MEDS: Aspirin Enteric Coated 81 MG Tablet PO SCH (08:59)
[2018-12-15] MEDS: Furosemide 40 MG TABLET PO SCH ×2 (08:59→17:30)
[2018-12-15] MEDS: Cholecalciferol (D-3) 1,000 UNIT (25MCG) TABLET PO SCH (08:59)
[2018-12-15] MEDS: Metoprolol XL (24 HR) Succ 50 MG TAB.ER.24H PO SCH (08:59)
--- NOTE | 2018-12-15 16:55 | Oncology Inp Progress Note ---
Date of Encounter: 12/15/18 Time of Encounter: 12:00 (1) Breast cancer in female Current Visit: Yes Status: Chronic Assessment and plan: Hx ramy breast cancers, s/p rt lumpectomy for LCIS and breast Rt conmpleted --not on adjuvant AI due to side effects and prior hx left breast stage I invasive ca s/p WBRT and adjuvant endocrine treatment for 2 yrs or so, admitted with SOB Echo evidence for early tamponade from pericardial effusion ?prior RT related s/p pericardial window. Cytology/path pending---will follow up Ramy pleural effusions-s/p pleurex catheter drainage, hopefully can be removed once cytology is negative. Anasarca/Hypoalbuminemia--on wt loss program, possibly related. 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 She is started on anti-coagulation for cephalic vein acute thrombosis, developed lower extremity and erythematous rash in the back, which appears petichiae like- per family was raised like hives. Consider switching to eliquis twice daily. Cytology results were negative, discussed with family/pt Qualifiers: Breast location: upper outer quadrant of breast Estrogen receptor status: positive Laterality: bilateral Qualified Code(s): C50.411 - Malignant neoplasm of upper-outer quadrant of right female breast; C50.412 - Malignant neoplasm of upper-outer quadrant of left female breast; Z17.0 - Estrogen receptor positive status [ER+] Oncology: Subj Interval history: Patient is sitting up in the chair, breathing comfortably without any pain. She has rash in lower extremities - Constitutional General appearance: no acute distress - Head Head exam: Present: atraumatic, normal inspection - Eye Eye exam: Present: sclera anicteric - Respiratory Respiratory exam: Present: CTAB - Cardiovascular Cardiovascular exam: Present: +S1, +S2 - Extremities Exam Extremities exam: Present: pedal edema - Skin Skin exam: Present: rash Oncology: Obj Data - Labs CBC & Chem 7: 12/14/18 03:42 12/14/18 03:42 Consult Discharge Plan - Plan Referrals: Nae Barone, COLLAR BAND CREASER [Primary Care Provider] - Inpatient Charges Provider: Dr. Sarah Yanez Follow up - Inpatient: [id number]
[2018-12-15] MEDS ORDERED: *HR* Rivaroxaban 10 MG TABLET PO SCH (17:00)
[2018-12-15] MEDS ORDERED: *HR* Enoxaparin 80 MG/0.8 ML SYRINGE SQ SCH (17:00)
--- NOTE | 2018-12-15 18:04 | Internal Med Progress Note ---
Hospitalist Progress Note - Encounter Date of Encounter: 12/15/18 Time of Encounter: 15:00 - Subjective Interval History: Ms adams developed petechial rash on bilateral lower extremity. She does have a long list of allergies however the only new medication was xarelto, which was prescribed for her pulmonary embolism and not superficial venous thrombosis, of note the patient was on heparin drip was transitioned to Xarelto yesterday based on the findings from her CTA of her chest dated 12/09/2018 which suggest component of acute PE in addition to chronic old PEs-filling defect within the right upper middle and lower lobe segment or subsegmental branches. GEN: Denies fever, chills or malaise HEENT: Denies headache blurriness, or dysphagia RESP: Denies SOB or cough CV: Denies chest pain or palpitations GI: Denies Nausea, vomiting, diarrhea or constipation Reviewed current in hospital medications with modifications see orders Reviewed Routine labs - Exam Vitals: Temp Pulse Resp BP Pulse Ox 98.1 F 91 18 132/76 99 12/15/18 11:42 12/15/18 15:51 12/15/18 15:51 12/15/18 15:51 12/15/18 15:51 Exam: GEN: NAD, A&O x 3, Pleasant and conversant 2 daughters at the bedside SKIN: [place] warm acyanotic not jaundice HEART: RRR, no murmurs LUNGS: Diminished no wheeze or crackles, overall non labored, bilateral Pleurx catheter noted ABDOMEN; Soft, non tender or distended, BS x 4 normactive EXT: Trace bilateral lower extremity edema Pedal pulses 1+, radial pulses 2+. Petechial rash noted on bilateral lower extremity from her feet up to below the patellar region, the lesions appears to be raised maculopapular rash PSYCH: Mood and affect is appropriate - Assessment and Plan (1) Pulmonary embolism Current Visit: Yes Status: Acute Assessment and Plan: CTA of her chest dated 12/09/2018 which suggest component of acute PE in addition to chronic old PEs-filling defect within the right upper middle and lower lobe segment or subsegmental branches. Was initially treated with heparin drip and transitioned to Xarelto yesterday, but developed a rash with the only culprit being Xarelto as the only new med which is quite unlikely. Would switch to Lovenox subcutaneous (2) Rash and nonspecific skin eruption Current Visit: Yes Status: Acute Assessment and Plan: She has developed a maculopapular rash on bilateral lower extremity yesterday she was complaining of hyperalgesia to bilateral lower extremity only new medication was xarelto which was ordered for her pulmonary embolism and not superficial venous thrombosis, of note she was on heparin drip was transitioned to Xarelto as part of the discharge planning. This rash does not appear to be morbilliform type rash as expected with most drug eruptions none on her torso but rather on bilateral feet. We will continue to monitor clinically correlate we will discontinue Xarelto (3) Superficial venous thrombosis of right arm Current Visit: Yes Status: Acute Assessment and Plan: Conservative treatment measures (4) Hyperalgesia Current Visit: Yes Status: Acute Assessment and Plan: s/p alber wrap bilateral LE, Pulses intact skin turgor intact no cyanosis. We will discontinue Alber wrap suspect underlying PAD she denies prior neuropathy. She is no longer hypersensitive but now developed a rash as mentioned above (5) CHF (congestive heart failure) Current Visit: Yes Status: Acute Assessment and Plan: last estimated ef: 40-45%. total fluids balance negative 4.8 litters so far, trace lower extremity edema we will switch to oral Lasix poor response will increase dose (6) GHADA (acute kidney injury) Current Visit: Yes Status: Acute Assessment and Plan: Due to IV access and patient complains of frequent blood draws she is on every 3 days blood draw Serum creatinine appears to be worsening local be multifactorial from hypoperfusion, poor cardiac output from poor EF given diffuse bilateral LE edema diuresis is indicated and hopefully once she is euvolemic cardiac output should improve we should thus improve renal perfusion will continue to monitor clinically correlate (7) Anasarca Current Visit: Yes Status: Chronic Assessment and Plan: Likely multifactorial and underlying etiology for pleural effusion and cardiac tamponade continue to encourage oral intake, (8) Ductal carcinoma in situ (DCIS) of right breast Current Visit: Yes Status: Chronic (9) Pulmonary hypertension Current Visit: Yes Status: Chronic Assessment and Plan: possible classification within the Group 4. outpatient pulmonary follow-up (10) Hypertension Current Visit: No Status: Chronic Assessment and Plan: Normotensive (11) Pericardial effusion Current Visit: Yes Status: Acute Assessment and Plan: . s/p pericardial window, bilateral pleurx catheter insertion. chest tube management per CT surgery. (12) Superior mesenteric artery stenosis Current Visit: Yes Status: Chronic Assessment and Plan: Chronic will monitor, and clinically correlate DVT Prophylaxis: Now on Lovenox for PE - Time Spent with Patient Total time spent is greater than 50% in coordination of care (as documented) at patient's floor/unit and/or counseling patient: Internal Medicine: Result - Labs CBC & Chem 7: 12/14/18 03:42 12/14/18 03:42 - ABG Interpretation ABG results: ABG ABG pH 7.45 pH Units (7.32-7.45) 12/09/18 15:57 ABG pCO2 34 mmHg (35-45) L 12/09/18 15:57 ABG pO2 85 mmHg (85-104) 12/09/18 15:57 ABG O2 Saturation 97 % (95-98) 12/09/18 15:57 PT/INR, D-dimer PT 11.3 Seconds (9.4-12.1) 12/09/18 14:34 Consult Discharge Plan - Plan Referrals: Nae Barone, DIRECTOR OF [employer]PA [employer]UEST EXPERIENCE [Primary Care Provider] - ___ (1) Pulmonary embolism Qualifiers: Pulmonary embolism type: unspecified Chronicity: unspecified Acute cor pulmonale presence: without acute cor pulmonale Qualified Code(s): I26.99 - Other pulmonary embolism without acute cor pulmonale (5) CHF (congestive heart failure) Qualifiers: Heart failure type: systolic Heart failure chronicity: acute on chronic Qualified Code(s): I50.23 - Acute on chronic systolic (congestive) heart failure (10) Hypertension Qualifiers: Hypertension type: essential hypertension Qualified Code(s): I10 - Essential (primary) hypertension
[2018-12-16 06:53] VITALS: BP 118/68
--- NOTE | 2018-12-16 07:50 | Cardiothoracic Progress Note ---
Date of Encounter: 12/16/18 Time of Encounter: 07:36 - Assessment and plan (1) Pericardial effusion Current Visit: Yes Status: Acute The patient is recovering well from her subxiphoid pericardial window and bilateral Pleurx catheter insertion. The pericardial cytology and pleural fluid cytology are negative for malignancy. The assessment and plan as outlined above was discussed with the patient and/or family members who expressed understanding and agreement. All questions were answered. - Subjective Procedure(s) Performed: POD#5 S/P Subxiphoid pericardial window, bilateral Pleurx catheter insertion Interval history: The patient remained hemodynamically stable overnight. She is sitting in a chair at the bedside. She has no complaints. Vital Signs, Last 4 Hours Temp Pulse Resp BP Pulse Ox 12/16/18 06:50 97.8 F 88 16 118/68 96 Oxgyen Flow Rate Oxygen Flow Rate (LPM) 90 Weight 12/14/18 12/15/18 12/16/18 23:59 23:59 23:59 Weight 76.5 kg 76.5 kg 75.7 kg - Physical Examination General: Conversant, No Apparent Distress Neck: No JVD, Normal carotid pulses Cardiac: Reg Rate and Rhythm, Normal S1 and S2, No Murmur Incision: No signs of infection, Dry/intact dressing Lungs: Normal Breath Sounds (Left lung [place]), Decreased breath sounds (Right base) Neuro: Alert and responsive, No focal deficits noted Vascular: Normal capillary refill Musculoskeletal: No Chest Wall Tenderness Extremities: No Clubbing, No Cyanosis, Other (Bilateral lower extremity 2+ pitting edema with erythema from the knees to the toes) - Labs 12/14/18 03:42 12/14/18 03:42 Consult Discharge Plan - Plan Referrals: Nae Barone, METAL BED ASSEMBLER [Primary Care Provider] -
[2018-12-16] MEDS: Aspirin Enteric Coated 81 MG Tablet PO SCH (08:13)
[2018-12-16] MEDS: Metoprolol XL (24 HR) Succ 50 MG TAB.ER.24H PO SCH (08:13)
[2018-12-16] MEDS: Cholecalciferol (D-3) 1,000 UNIT (25MCG) TABLET PO SCH (08:13)
[2018-12-16 09:42] LABS: Calcium 8.6 mg/dL (8.6-10.3); Magnesium 2.2 mg/dL (1.6-2.6)
[2018-12-16 10:35] LABS: Hematocrit 33.9 % (35.3-44.9); Hemoglobin 10.9 g/dL (11.5-15.4); Mean Corpuscular Volume 96.3 fL (83.0-100.0); Red Blood Count 3.52 M/mcL (3.82-4.97); White Blood Count 4.2 K/mcL (4.3-11.1)
[2018-12-16 10:36] LABS: Basophils % 0.7 %; Eosinophils # 0.5 K/mcL (0.0-0.6); Eosinophils % 10.8 %; Immature Granulocytes % 0.5 % (0-4); Lymphocytes # 0.6 K/mcL (0.6-4.6); Lymphocytes % 13.2 %; Mean Corpuscular HGB Conc 32.2 g/dL (31.6-35.5); Mean Platelet Volume 11.1 fL (9.4-12.4); Monocytes # 0.3 K/mcL (0.0-1.3); Monocytes % 6.5 %; Neutrophils # 2.9 K/mcL (1.6-8.9); Platelet Count 178 K/mcL (140-400); Red Cell Distribution Width 13.2 % (11.5-14.5); Segmented Neutrophils % 68.3 %
--- NOTE | 2018-12-16 13:00 | Discharge Summary ---
- NOTES TO OUTPATIENT PROVIDER Notes to Outpatient Provider: Post hospital discharge for cardiac tamponade status post pericardial window, acute and chronic pulmonary embolism now on anticoagulation therapy with Lovenox, acute on chronic heart failure with reduced ejection fraction and anasarca. Patient will need to follow up with c ardiothoracic surgeon and also need to be established with a hat copyist as an outpatient for her heart failure. She will also need workup for coagulopathies in the near future Date of Encounter: 12/16/18 Time of Encounter: 12:57 - Discharge Diagnosis (1) Pericardial effusion Priority: Primary Status: Acute Assessment and Plan: . s/p pericardial window, bilateral pleurx catheter insertion. chest tube management per CT surgery. (2) Anasarca Priority: Primary Status: Chronic Assessment and Plan: Likely multifactorial and underlying etiology for pleural effusion and cardiac tamponade continue to encourage oral intake, (3) Pulmonary embolism Priority: Primary Status: Acute Assessment and Plan: CTA of her chest dated 12/09/2018 which suggest component of acute PE in addition to chronic old PEs-filling defect within the right upper middle and lower lobe segment or subsegmental branches. Was initially treated with heparin drip and transitioned to Xarelto yesterday, but developed a rash with the only culprit being Xarelto as the only new med which is quite unlikely. Would switch to Lovenox subcutaneous Qualifiers: Pulmonary embolism type: unspecified Chronicity: unspecified Acute cor pulmonale presence: without acute cor pulmonale Qualified Code(s): I26.99 - Other pulmonary embolism without acute cor pulmonale (4) Rash and nonspecific skin eruption Priority: Secondary Status: Acute Assessment and Plan: She has developed a maculopapular rash on bilateral lower extremity yesterday she was complaining of hyperalgesia to bilateral lower extremity only new medication was xarelto which was ordered for her pulmonary embolism and not superficial venous thrombosis, of note she was on heparin drip was transitioned to Xarelto as part of the discharge planning. This rash does not appear to be morbilliform type rash as expected with most drug eruptions none on her torso but rather on bilateral feet. We will continue to monitor clinically correlate we will discontinue Xarelto (5) Superficial venous thrombosis of right arm Priority: Secondary Status: Acute Assessment and Plan: Conservative treatment measures (6) CHF (congestive heart failure) Priority: Secondary Status: Acute Assessment and Plan: last estimated ef: 40-45%. total fluids balance negative 4.1 litters trace lower extremity edema we will switch to oral Lasix poor response will increase dose at discharge Qualifiers: Heart failure type: systolic Heart failure chronicity: acute on chronic Qualified Code(s): I50.23 - Acute on chronic systolic (congestive) heart failure (7) Hyperalgesia Priority: Secondary Status: Acute Assessment and Plan: s/p alber wrap bilateral LE, Pulses intact skin turgor intact no cyanosis. We will discontinue Alber wrap suspect underlying PAD she denies prior neuropathy. She is no longer hypersensitive but now developed a rash as mentioned above (8) GHADA (acute kidney injury) Priority: Secondary Status: Acute Assessment and Plan: Serum creatinine appears to be initially worsening multifactorial from hypoperfusion, poor cardiac output from poor EF given diffuse bilateral LE edema diuresis is indicated and hopefully once she is euvolemic cardiac output should improve we should thus improve renal perfusion, Scr [id number] at discharge (9) Ductal carcinoma in situ (DCIS) of right breast Priority: Secondary Status: Chronic Assessment and Plan: AJCC clinical stage [id number] DCIS/lobular carcinoma in situ of the right breast status post lumpectomy with negative margins and negative sentinel lymph node examination. 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 (10) Pulmonary hypertension Priority: Secondary Status: Chronic Assessment and Plan: possible classification within the Group 4. outpatient pulmonary follow-up (11) Hypertension Priority: Secondary Status: Chronic Assessment and Plan: Normotensive Qualifiers: Hypertension type: essential hypertension Qualified Code(s): I10 - Essential (primary) hypertension (12) Superior mesenteric artery stenosis Priority: Secondary Status: Chronic Assessment and Plan: Chronic will monitor, and clinically correlate (13) DVT prophylaxis Priority: Secondary Status: Acute Assessment and Plan: Was initially on heparin drip, then switched to Lovenox. will be discharged today Hospital course: Ms. Xiao is a 78 year old female hospitalized for pericardial effusion noted to be in cardiac tamponade had a pericardial window. Workup also revealed acute and chronic pulmonary embolism for which she was started heparin drip. She was transitioned to Xarelto however developed petechiae maculopapular rash on bilateral lower extremity. Hence Xarelto was discontinued and she will be managed with Lovenox. Patient and her family maintains that she was never a sedentary and also could not confirm or refute any formal diagnosis of coagulopathies. Her seems to recall many years ago patient developing a DVT when she had knee surgery and had IVC filter placed after he was at Hospital. Of note lower extremity venous duplex study here was negative for DVT. Overall patient was noted to have anasarca and was encouraged to increase her protein intake, pericardial fluid analyses was negative for malignancy Discharge discussed with: patient, family, nurse, social work, case management - Time Spent with Patient Total time spent providing and/or coordinating discharge services: 55 mins Specific discharge activities: Please adhere to the treatment plan and take all medications as prescribed. Make sure you follow up with his outpatient physician appointment. - Discharge Medications Prescriptions: New Lisinopril 2.5 mg PO QDPC #30 tablet Enoxaparin [Lovenox] 70 mg SQ Q24H #30 syringe Polyethylene Glycol 3350 [MiraLAX] 17 gm PO DAILY PRN 30 Days #527 gm PRN Reason: Constipation Metoprolol XL (24 HR) Succ [Toprol Xl] 50 mg PO DAILY #30 tab.er.24h Continued Calcitonin,[place],Synthetic [Calcitonin-[place]] 1 spr NS DAILY Ca/D3/Mag#11/Zinc/Cylinder Inspector And Tester/Bonifacio/Bor [Caltrate 600+D Plus Tablet] 1 each PO BID Aspirin 81 mg PO DAILY Cholecalciferol (D-3) [Vitamin D] 2,000 unit PO DAILY Changed Furosemide [Lasix] 40 mg PO BID #60 tablet Discontinued Cranberry Conc/Ascorbic Acid [Cranberry Plus Vitamin C Sftgl] 1 each PO DAILY Potassium 99 mg PO DAILY Lisinopril/Hydrochlorothiazide [Zestoretic 10-12.5 mg Tablet] 4 each PO DAILY Metoprolol Succinate [Toprol Xl] 25 mg PO DAILY Nitrofurantoin Macrocrystal [Nitrofurantoin] 100 mg PO BID Home Medications: Aspirin 81 mg PO DAILY 12/23/15 [History] Ca/D3/Mag#11/Zinc/Cylinder Inspector And Tester/Bonifacio/Bor [Caltrate 600+D Plus Tablet] 1 each PO BID 12/23/15 [History] Calcitonin,[place],Synthetic [Calcitonin-[place]] 1 spr NS DAILY 09/06/16 [History] Cholecalciferol (D-3) [Vitamin D] 2,000 unit PO DAILY 12/09/18 [History] Enoxaparin [Lovenox] 70 mg SQ Q24H #30 syringe 12/16/18 [Rx] Furosemide [Lasix] 40 mg PO BID #60 tablet 12/16/18 [Rx] Lisinopril 2.5 mg PO QDPC #30 tablet 12/16/18 [Rx] Metoprolol XL (24 HR) Succ [Toprol Xl] 50 mg PO DAILY #30 tab.er.24h 12/16/18 [Rx] Polyethylene Glycol 3350 [MiraLAX] 17 gm PO DAILY PRN 30 Days #527 gm 12/16/18 [Rx] Allergies/Adverse Reactions: Allergy/AdvReac Type Severity Reaction Status Date / Time rivaroxaban [From Xarelto] Allergy Rash Verified 12/15/18 13:12 hydrocodone AdvReac Unknown Vomiting Verified 08/24/18 10:43 indomethacin AdvReac Unknown Vomiting Verified 08/24/18 10:43 morphine AdvReac Unknown Vomiting Verified 08/24/18 10:43 codeine AdvReac Vomiting Verified 08/24/18 10:43 oxycodone AdvReac Vomiting Verified 08/24/18 10:43 Date of admission: 12/09/18 15:05 Primary care physician: Nae Barone CNP Consults: 12/09/18 14:48 Consult to Pulmonology [CONS] Routine Consulting Provider: Pulm Crit Care & Sleep Lita Reason for Consult: pulmonary HTN. acute/chronic PE Call Completed: Yes 12/10/18 09:03 Consult to Cardiothoracic Surgery [CONS] Stat Consulting Provider: Cardiothoracic Surgery Lita Reason for Consult: Echocardiogram suggestive of tamponade Time Notified: 09:00 Call Completed: Yes 12/11/18 16:24 Consult to Oncology [CONS] Routine Consulting Provider: Ericka Yanez Reason for Consult: Follows pt outpatient Call Completed: Yes 12/12/18 07:00 Consult to Drainage Design Coordinator [CONS] Routine Reason for SW Consult: home care 12/14/18 09:52 Consult to Physical Therapy [CONS] Routine Comment: Evaluate, develop and implement POC Reason for Consult: strengthenin Does patient have active BEDREST order?: No Is patient medically & hemodynamically stable?: Yes Patient assessed for mobility or mobilized this visit?: Yes Discharging clinician: Kyung Morin Anticipated date of discharge: 12/16/18 - Constitutional Vitals: Temp Pulse Resp BP Pulse Ox 97.8 F 88 16 118/68 96 12/16/18 06:50 12/16/18 06:50 12/16/18 06:50 12/16/18 06:50 12/16/18 06:50 Exam: GEN: NAD, A&O x 3, Pleasant and conversant-2 daughters, , son-in-law, son were at the bedside SKIN: [place] warm acyanotic not jaundice HEART: RRR, no murmurs LUNGS: Diminished but appears CTA no wheeze or crackles, overall non labored ABDOMEN; Soft, non tender or distended, BS x 4 normactive EXT: No LE edema, Pedal pulses 1+, radial pulses 2+ Petechial rash noted on bilateral lower extremity from her feet up to below the patellar region, the lesions appears to be less raised maculopapular rash and much improvement - Patient Status Disposition: Home Health Service Condition: Fair Functional capacity at discharge: uses cane/walker Overall status at discharge: patient is back to baseline - Discharge Instructions Instructions: Enoxaparin (Injection), Pericardial Effusion (DC), Pericardial Effusion (GEN), Heart Failure (DC) Follow Up With: Nae Barone, UTILITY ACCOUNTS DIRECTOR [Primary Care Provider] - - Diet and Activity Activity: ambulate only with your walker Diet: low fat, low cholesterol, low salt diet
--- NOTE | 2018-12-16 13:23 | Physician Discharge Referral ---
Home Health/Hosp Referral Info Transfer to: Home Health Provider in Charge Post Discharge: PCP - Diagnosis (1) Pericardial effusion Priority: Primary Status: Acute (2) Anasarca Priority: Primary Status: Chronic (3) Pulmonary embolism Priority: Primary Status: Acute (4) Rash and nonspecific skin eruption Priority: Secondary Status: Acute (5) Superficial venous thrombosis of right arm Priority: Secondary Status: Acute (6) CHF (congestive heart failure) Priority: Primary Status: Acute (7) Hyperalgesia Priority: Secondary Status: Acute (8) GHADA (acute kidney injury) Priority: Secondary Status: Acute (9) Ductal carcinoma in situ (DCIS) of right breast Priority: Secondary Status: Chronic (10) Pulmonary hypertension Priority: Secondary Status: Chronic (11) Hypertension Priority: Secondary Status: Chronic (12) Superior mesenteric artery stenosis Priority: Secondary Status: Chronic (13) DVT prophylaxis Priority: Secondary Status: Acute - Respiratory Orders Smoking Cessation: Smoking cessation has been advised. For more information, call the [place] Tobacco Quit Line at 1-552-KAVO-NOW. - Diet/Nutrition Diet/Nutrition Orders: Cardiac - Activity Activity Orders: Walker - Services Needed Following services are medically necessary services: Nursing (help with pleurx cath,), Home Health Aide, Physical Therapy, Occupational Therapy - Transfer Medications Prescriptions: Furosemide [Lasix] 40 mg PO BID #60 tablet Lisinopril 2.5 mg PO QDPC #30 tablet Enoxaparin [Lovenox] 70 mg SQ Q24H #30 syringe Polyethylene Glycol 3350 [MiraLAX] 17 gm PO DAILY PRN 30 Days #527 gm PRN Reason: Constipation Metoprolol XL (24 HR) Succ [Toprol Xl] 50 mg PO DAILY #30 tab.er.24h Home Medications: Aspirin 81 mg PO DAILY 12/23/15 [History] Ca/D3/Mag#11/Zinc/Controls Design Engineer/Bonifacio/Bor [Caltrate 600+D Plus Tablet] 1 each PO BID 12/23/15 [History] Calcitonin,[place],Synthetic [Calcitonin-[place]] 1 spr NS DAILY 12/23/15 [History] Cholecalciferol (D-3) [Vitamin D] 2,000 unit PO DAILY 12/09/18 [History] Enoxaparin [Lovenox] 70 mg SQ Q24H #30 syringe 12/16/18 [Rx] Furosemide [Lasix] 40 mg PO BID #60 tablet 12/16/18 [Rx] Lisinopril 2.5 mg PO QDPC #30 tablet 12/16/18 [Rx] Metoprolol XL (24 HR) Succ [Toprol Xl] 50 mg PO DAILY #30 tab.er.24h 12/16/18 [Rx] Polyethylene Glycol 3350 [MiraLAX] 17 gm PO DAILY PRN 30 Days #527 gm 12/16/18 [Rx] Allergies/Adverse Reactions: Allergy/AdvReac Type Severity Reaction Status Date / Time rivaroxaban [From Xarelto] Allergy Rash Verified 12/15/18 13:12 hydrocodone AdvReac Unknown Vomiting Verified 08/24/18 10:43 indomethacin AdvReac Unknown Vomiting Verified 08/24/18 10:43 morphine AdvReac Unknown Vomiting Verified 08/24/18 10:43 codeine AdvReac Vomiting Verified 08/24/18 10:43 oxycodone AdvReac Vomiting Verified 08/24/18 10:43 Certification: Further, I certify that my clinical findings support that this patient is homebound (i.e. absences from home require considerable and taxing effort and are for medical reasons or taoism services or infrequently or short duration when for other reasons) because: Homebound Reason: Leaving home requires considerable and taxing effort due to condition Attestation: My signature below is to certify that this patient is under my care and that I, or nurse practitioner, or a physician's administrative assistant receptionist working with me, has a [id number] encounter with this patient.
== END 2018-12-16 14:50 | disposition home health service (06) | DRG 270 ==
LOC: EMEROOARM 10:30 → ICNU 15:05 → SUATTDRO 15:05 → ICNU 15:45 → 2NENU 12-14 20:13
PROVIDERS: ADMIT Internal Medicine Nephrology; ATTEND Pharmacist